=== PATIENT | female | born 1975 | race Caucasian/White ===

== ENCOUNTER 2018-04-15 20:55 | Emergency (ER) | payer OTHER ==
[2018-04-15 21:04] VITALS: RESP 16; TEMP 97.6
--- NOTE | 2018-04-15 21:35 | ED ---
Lower Extremity Injury HPI - General Source: patient Mode of arrival: ambulatory Limitations: no limitations <Francine Boss - Last Filed: 04/16/18 00:05> <Janet Person - Last Filed: 04/16/18 01:52> - General Chief Complaint: Extremity Injury, Lower Stated Complaint: Knee injury, [facility] Time Seen by Provider: 04/15/18 21:09 - History of Present Illness Initial Comments: 43-year-old female past medical history of chronic left knee pain presenting today for knee pain. Patient states she has a previous ACL injury. She states this did not initially current work. Patient states that she wears a brace daily and is followed by orthopedic surgeon in [place]. She states she her next appointment is scheduled for 04/21/18. 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 She states she felt her left knee become more unstable and wobble in the brace than usual with increased pain. Presented for evaluation. She denies any numbness tingling or loss sensation, coolness or pallor. Patient denies any dislocation. Remaining review of systems negative, patient denies any fall, fever, chills, shortness of breath, chest pain, back pain, abdominal pain, nausea or vomiting, numbness or tingling, dysuria or hematuria, constipation or diarrhea, headaches or visual changes, or any other complaints. (Francine Boss) - Related Data Allergies Allergy/AdvReac Type Severity Reaction Status Date / Time "white gloves at work" Allergy Rash/Hives Uncoded 04/15/18 21:05 Review of Systems ROS Other: All systems not noted in ROS Statement are negative. <Francine Boss - Last Filed: 04/16/18 00:05> ROS Other: All systems not noted in ROS Statement are negative. <Janet Person - Last Filed: 04/16/18 01:52> ROS Statement: Those systems with pertinent positive or pertinent negative responses have been documented in the HPI. Past Medical History Past Medical History: Cancer Additional Past Medical History / Comment(s): breast bilateral History of Any Multi-Drug Resistant Organisms: None Reported Past Surgical History: Breast Surgery Additional Past Surgical History / Comment(s): chronic open wound on abdomen Past Psychological History: No Psychological Hx Reported Smoking Status: Never smoker Past Alcohol Use History: None Reported Past Drug Use History: None Reported <Francine Boss - Last Filed: 04/16/18 00:05> General Exam Limitations: no limitations <Francine Boss - Last Filed: 04/16/18 00:05> <Janet Person - Last Filed: 04/16/18 01:52> - General Exam Comments Initial Comments: General: The patient is awake and alert, in no distress, and does not appear acutely ill. Eye: Pupils are equal, round and reactive to light, extra-ocular movements are intact. No nystagmus. There is normal conjunctiva bilaterally. No signs of icterus. Ears, nose, mouth and throat: There are moist mucous membranes and no oral lesions. Neck: The neck is supple, there is no tenderness or JVD. Cardiovascular: There is a regular rate and rhythm. No murmur, rub or gallop is appreciated. Respiratory: Lungs are clear to auscultation, respirations are non-labored, breath sounds are equal. No wheezes, stridor, rales, or rhonchi. Musculoskeletal: No gross deformity. Normal inspection of the knees bilaterally there is no soft tissue swelling or erythema. No palpable effusion. Extensor mechanism intact. No noted laxity. Patient has pain to palpation of the anterior knee. Normal ROM, with tenderness with full range of motion of the left knee.. Strength 5/5. Sensation intact. DP pulses equal bilaterally 2+. Neurological: A&O x 3. CN II-XII intact, There are no obvious motor or sensory deficits. Coordination appears grossly intact. Speech is normal. Skin: Skin is warm and dry and no rashes or lesions are noted. Psychiatric: Cooperative, appropriate mood & affect, normal judgment. (Francine Boss) Vital Signs 04/15/18 04/15/18 20:58 22:20 Temperature 97.6 F Pulse Rate 66 58 L Respiratory 16 16 Rate Blood Pressure 153/86 135/74 O2 Sat by Pulse 100 98 Oximetry Medical Decision Making <Francine Boss - Last Filed: 04/16/18 00:05> <Janet Person - Last Filed: 04/16/18 01:52> - Medical Decision Making X-ray negative for acute osseous injury. Patient has anterior knee pain. Quadriceps tendon appear intact's able to fully extend. No noted laxity. Anterior tenderness to palpation. Patient's previous ACL injury. Neurovascularly intact. No physical examination findings consistent with acute injury. Patient has brace at home. Patient provided prescription for crutches. Patient is to follow-up with orthopedic surgery as scheduled. Patient is not to return to work until cleared by orthopedic surgery. Patient agreed with plan discharge. I discussed Rice instructions as well as use of outpatient medication previously prescribed and [id number] ibuprofen and Tylenol. Patient is agreeable plan discharged by questions at this time. Return parameters were discussed at length, patient verbalized understanding. DIscussed case wtih attending provider Dr. Person. (Francine Boss) I was available for consultation in the emergency department. The history and physical exam were done by the midlevel provider. I was consulted for this patient's care. I reviewed the case with the midlevel provider and based on their presentation of the patient, I agree with the assessment, medical decision making and plan of care as documented. (Janet Person) Disposition Is patient prescribed a controlled substance at d/c from ED?: No Time of Disposition: 21:42 <Francine Boss - Last Filed: 04/16/18 00:05> <Janet Person - Last Filed: 04/16/18 01:52> Clinical Impression: Left knee pain Disposition: HOME SELF-CARE Instructions (If sedation given, give patient instructions): Knee Sprain (ED) Additional Instructions: Please use medication as discussed. Please follow-up with family doctor or orthopedic surgery in the next 2 days of symptoms have not improved. Please return to emergency room if the symptoms increase or worsen or for any other concerns. Referrals: Nonstaff,Physician [Primary Care Provider] - 1-2 days
--- NOTE | 2018-04-15 21:38 | XR ---
Left knee 3 views. History knee pain. Comparison none. FINDINGS: I see no fracture nor dislocation. Joint spaces are fairly normal. There is no sign of joint effusion . IMPRESSION: Negative left knee exam.
[2018-04-15 22:35] VITALS: BP 135/74; PULSE 58
== END 2018-04-15 22:20 | disposition home or self-care (01) ==
LOC: EC 20:55 → MERGE 20:55 → EC 22:20
DX: M25.562 Pain in left knee (principal); Z85.3 Personal history of malignant neoplasm of breast; Z91.09 Other allergy status, other than to drugs and biological substances
CPT/HCPCS: 99283

== ENCOUNTER 2021-07-24 07:59 | Day surgery (SDC) | payer MEDICAID, OTHER ==
[2021-07-19 16:20] VITALS: BMI 22.6
--- NOTE | 2021-07-23 09:17 | P.HPOR ---
History of Present Illness H&P Date: 07/23/21 Chief Complaint: Left carpal/cubital tunnel syndrome Subjective: This is a 46 year old female that presents today for initial evaluation regarding left hand numbness and tingling that has been present for over a year. She has tried night time splinting with little relief. She states the entire hand is numb and is worse at night time. She denies any injury or inciting event. She also has a history of a painful right index finger mass that has been present for 5 months overlying the PIP joint. She notes swelling and limited ROM due to the mass. Physical Examination: LUE: AIN/PIN/Radial/Ulnar/Median motor intact. Radial/Ulnar/Median SILT. 2+/4 Radial/Ulnar pulses palpated. 5/5 APB, 5/5 FDI. Negative Finkelsteins, negative CMC grind, Positive Durkan's compression. Paresthesias in ring and small finger with prolonged elbow flexion. RUE: AIN/PIN/Radial/Ulnar/Median motor intact. Radial/Ulnar/Median SILT. 2+/4 Radial/Ulnar pulses palpated. 5/5 APB, 5/5 FDI. Negative Finkelsteins, negative CMC grind, negative Durkan's compression. Right index finger round mass protruding from right index finger PIP joint. PIP ROM 0-80. Imaging: X-Rays of the right index finger demonstrate mild arthritic changes of the right index finger with small calcification at PIP joint. Impression: 1.)Left carpal tunnel syndrome 2.) Left cubital tunnel syndrome 3.) Right index finger soft tissue mass. Plan: Diagnosis and treatment options were discussed with the patient. I recommend endoscopic vs open carpal tunnel release and open cubital tunnel release since she has failed conservative treatment for her carpal/cubital tunnel. We also discussed a right index finger soft tissue mass excision which she would like to eventually do but she would like to take care of her left side first. Risks and benefit of surgery including bleeding, infection, damage to surrounding tissue, need for further surgery, possible need to convert to open procedure, residual numbness were discussed and the patient wished to go forward with surgery. I anticipate 2-3 weeks off of her [employer] work if needed. -Julio Stevenson DO Orthopedic Hand/Upper Extremity Surgeon Past Medical History Past Medical History: Cancer, Eye Disorder, Hypertension, Musculoskeletal Disorder, Osteoarthritis (OA) Additional Past Medical History / Comment(s): Hx breast cancer 2017; Do not use Lt arm for blood work or IV. Hx Lt lazy eye. Treated for HTN for 1 year after Breast cancer. Lt CTS up to elbow. History of Any Multi-Drug Resistant Organisms: None Reported Past Surgical History: Breast Surgery, Orthopedic Surgery, Tubal Ligation Additional Past Surgical History / Comment(s): Lt lazy eye surg x3. Bilat Mastectomy w/ lymph node removal; breast deep flap reconstruction w/ implants. Chronic open wound on abdomen surg. ACL, meniscus Lt knee x2. Past Anesthesia/Blood Transfusion Reactions: No Reported Reaction Additional Past Anesthesia/Blood Transfusion Reaction / Comment(s): Do not use Lt arm. Smoking Status: Current every day smoker - Past Family History Father Family Medical History: Cancer Additional Family Medical History / Comment(s): prostate cancer Medications and Allergies Home Medications Medication Instructions Recorded Confirmed Type Acetaminophen [Tylenol Extra 500 - 1,000 mg PO DIRECTED PRN 07/19/21 07/19/21 History Strength] Ibuprofen [Motrin Ib] 400 mg PO Q8H PRN 07/19/21 07/19/21 History Allergies Allergy/AdvReac Type Severity Reaction Status Date / Time latex Allergy Rash/Hives Verified 07/19/21 15:55 "white gloves at work" Allergy Rash/Hives Uncoded 04/16/18 08:01 Physical Examination Osteopathic Statement: *. No significant issues noted on an osteopathic structural exam other than those noted in the History and Physical/Consult.
[~2021-07-24 07:59] MED LIST: HYDROmorphone 0.5 MG/0.5 ML SYRINGE IVP PRN; LACTATED RINGERS 1,000 ML IV SCH; LIDOCAINE 1% (10MG/ML) FOR IV START INTRADERMA PRN; ONDANSETRON 4 MG/2 ML VIAL IVP ONE
[2021-07-24 08:33] VITALS: TEMP 97.8
[2021-07-24] MEDS ORDERED: DEXAMETHASONE SOD PHOSPHATE 4 MG/ML 1 ML VIAL IVP ONE (08:47)
[2021-07-24] MEDS ORDERED: PROPOFOL 10 MG/ML 20 ML VIAL IV ONE (09:25)
[2021-07-24] MEDS ORDERED: MIDAZOLAM 2 MG/2 ML VIAL ONE (09:25)
[2021-07-24] MEDS ORDERED: GLYCOPYRROLATE 0.2 MG/ML 2 ML VIAL ONE (09:25)
[2021-07-24] MEDS ORDERED: LIDOCAINE 2% INJ 20 MG/ML (2 ML VIAL) ONE (09:25)
[2021-07-24] MEDS ORDERED: BUPIVACAINE (PF) 0.5% 30 ML VIAL SQ ONE ×2 (09:25→10:14)
[2021-07-24] MEDS ORDERED: fentaNYL (PF) 50 MCG/ML 2 ML AMP ONE (09:25)
--- NOTE | 2021-07-24 10:39 | P.OP ---
Date of Procedure: 07/24/21 Preoperative Diagnosis: 1.) Left carpal tunnel syndrome 2.) Left cubital tunnel syndrome Postoperative Diagnosis: 1.) Left carpal tunnel syndrome 2.) Left cubital tunnel syndrome Procedure(s) Performed: 1.) Left endoscopic carpal tunnel release 2.) Left open cubital tunnel syndrome Anesthesia: ELICIA Surgeon: Julio Stevenson [employer] Delivery Manager #1: Paul Breaux Estimated Blood Loss (ml): 5 Pathology: none sent Condition: stable Disposition: PACU Description of Procedure: This is a 46 year old female who presented today for a left endoscopic carpal tunnel release and open cubital tunnel release after having failed conservative treatment. Risks and benefits of surgery were discussed with the patient including bleeding, damage to surrounding tissue, infection, need for further surgery as well as risks of anesthesia including pulmonary embolism and even and the patient wished to proceed with surgical intervention. The patient was seen in the pre-operative area by myself. Consent and H&P were completed and updated. The correct extremity was marked in the pre-operative area by myself and all other questions were answered. Operative Narrative: The patient was brought to the operating room by the department of anesthesia. They remained on the portable stretcher and a rolling hand table was brought to the side of the operative extremity. Pre-operative time out was performed indicating the correct patient, procedure and laterality. All in the room agreed. Pre-operative antibiotics were given prior to skin incision. The patient was then drifted off to sleep by the department of anesthesia. A nonsterile tourniquet was then applied to the operative extremity and the left upper extremity was then prepped and draped in normal sterile fashion. The operative extremity was the exsanguinated with an esmarch bandage and the tourniquet was inflated to 250mmHg. 15 blade scalpel was utilized to make a transverse incision on the palmar skin just ulnar to the palmaris longus tendon at the level of the distal wrist crease. Ragnell retractor was then placed radially and blunt dissection was performed to reveal the distal forearm fascia. This was lifted with fine Remi pick ups and Littler tenotomy scissors were then used to open the forearm fas lynn transversely and a double skin hook was then placed. Hamate finder was placed into the carpal tunnel and then sequential sized dilators were inserted followed by the synovial elevator to separate the flexor tenosynovium from the undersurface of the transverse carpal ligament and a washboard texture was felt. The MicroAire endoscopic carpal tunnel release system gun was the then inserted into the carpal tunnel hugging the deep portion of the transverse carpal ligament in line with the base of the ring finger. Transverse fibers of the ligament were directly visualized. Pressure was applied on the palm to reveal the distal extent of the transverse carpal ligament. The blade was then deployed and the distal half of the transverse carpal ligament was released. The scope was then brought distal again and remaining transverse fibers were incised with the blade. The proximal half of the transverse carpal ligament was then divided and again the scope was advanced distal and remaining transverse fibers were incised with the blade. The radial and ulnar leaflets were directly visualized and mobile consistent with complete release. Tenotomy scissors were then utilized to release the remaining distal forearm fascia under direct visualization taking care to preserve the palmar cutaneous branch of the median nerve. Attention was brought to the medial elbow. 15 blade scalpel was used to incise skin in between the medial epicondyle and olecranon in a curvlinear and longitudinal fashion. Blunt dissection was taken down through subcutaneous tissue with tenotomy scissors and branches of the MABCN were identified and protected. Dissection was carried proximally and the ulnar nerve was identified and released in it's entirety to the the intermuscular septum. Dissection was then carried distally and worthington's ligament was released at the medial epicondyle, the nerve appeared compressed at this location. Dissection was then carried out further distal and the fascia of the two heads of the FCU were incised and the ulnar nerve was decompressed with Brighton and tenotomy scissors and appeared to be tension free. The elbow was the flexed and extended and the ulnar nerve appeared to be stable in a tension free manner. 20cc's of 0.5% bupivacaine was injected into the subcutaneous tissues around incisions. Skin closure was performed with interrupted 4-0 Monocryl sutures followed by running 4-0 Monocryl sutures, followed by mastisol and steri strips. Large bulky dressing with 4x4s, cast padding and sary wrap. Tourniquet was then let down and the hand had immediate perfusion. The patient was then woken by the department of anesthesia and transferred to PACU in stable condition. Rosalina SULLIVAN was present for the case to assist in major portions of the surgery and protection of neurovascular structures. Julio Stevenson D.O. Orthopedic Hand/Upper Extremity Surgeon
[2021-07-24 11:01] VITALS: RESP 16
[2021-07-24 11:27] VITALS: BP 160/73; PULSE 71
== END 2021-07-24 11:58 | disposition home or self-care (01) ==
LOC: OR 07:59
PROVIDERS: ATTEND Orthopaedic Surgery Hand Surgery
DX: G56.02 Carpal tunnel syndrome, left upper limb (principal); G56.22 Lesion of ulnar nerve, left upper limb; F17.200 Nicotine dependence, unspecified, uncomplicated; I10 Essential (primary) hypertension; M19.90 Unspecified osteoarthritis, unspecified site; Z79.1 Long term (current) use of non-steroidal anti-inflammatories (NSAID); Z85.3 Personal history of malignant neoplasm of breast; Z91.040 Latex allergy status
CPT/HCPCS: 29848; 64718; 81025; J2250; J1100; J2405; J3010; J2704; J2001

== ENCOUNTER → 2021-08-15 | Outpatient (CLI) | payer MEDICAID ==
--- NOTE | 2021-08-15 13:49 | US ---
EXAMINATION TYPE: US axilla LT DATE OF EXAM: 08/15/2021 COMPARISON: NONE CLINICAL HISTORY: N63.32 UNSPECIFIED LUMP AXILLA. lump left axilla. history of breast cancer 2019. bi lateral mastectomy with TRAM scanned within area of lump, left axilla, lymph node = 2.1 x 0.9 x 1.4cm . The cortex is somewhat thi ckness is 0.47 cm. IMPRESSION: 1. Prominent lymph node with thickened cortex left axilla, consider additional workup.
== END | disposition home or self-care (01) ==
LOC: RADUSWWP 12:22
PROVIDERS: ATTEND Family Medicine
DX: N63.32 Unspecified lump in axillary tail of the left breast (principal)

== ENCOUNTER → 2021-09-19 | Outpatient (CLI) | payer MEDICAID ==
[2021-09-19 12:16] VITALS: BP 149/84; PULSE 120; RESP 17; TEMP 98.7
--- NOTE | 2021-09-19 12:44 | P.GSHP ---
History of Present Illness H&P Date: 09/19/21 Chief Complaint: Enlarged left axillary adenopathy Nataly is a 46-year-old white female seen in consultation for Dr. 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 At that time sentinel node biopsies were performed which were negative for tumor. The lesion itself was 9 mm there were negative margins. Did not have any hormone therapy, chemotherapy, radiation therapy. She had bilateral RORY flap reconstruction as well as implants placed. She has been followed in the [place] area until recently. Approximately 2 months ago she noticed swelling under her left arm. An ultrasound was done of this area on [id number] 322 which revealed a 2.1 x 1.4 cm enlarged lymph node. This had a prominent thickened cortex. The patient feels this may have increased in size. It is tender. She has not noted any infections in her left arm or hand. The DCIS was diagnosed at 41. She had genetic testing done and this was negative. She has not noted any lumps masses or nodules of concern on her chest wall. Caffeine: coffee 1 pop per day Nicotine: 1/2 PPD since chocolate: rare hormones: none BCP: never used Family History: father: prostate Hormonal history: Menarche: 11 [id number] 1 breast fed: no, age at first : 17 periods irregular Surgical history: Bilateral mastectomy with left sentinel node biopsy, bilateral RORY flap reconstruction as well as implants placed left knee done twice ACL repair carpel tunnel left umbilical hernia repair time 2, it has recurred tubaligation lazy eye Medical History: none Social History: Imaging: A half pack per day since 13 Alcohol: Negative Drugs: Negative - Constitutional Constitutional: Denies chills, Denies fever - EENT Eyes: denies blurred vision, denies pain Ears: deny: decreased hearing, tinnitus Ears, nose, mouth and throat: Denies headache, Denies sore throat - Breasts Breasts: bilateral: as per HPI - Cardiovascular Cardiovascular: Denies chest pain, Denies shortness of breath - Respiratory Comment: smoker Respiratory: Reports cough - Gastrointestinal Gastrointestinal: Denies abdominal pain, Denies diarrhea, Denies nausea, Denies vomiting - Genitourinary (Female) Genitourinary: Denies dysuria, Denies hematuria - Menstruation Menstruation: Reports as per HPI - Musculoskeletal Musculoskeletal: Denies myalgias - Integumentary Comment: multiple tattoos Integumentary: Denies pruritus, Denies rash - Neurological Comment: carpel tunnel surgery - Psychiatric Psychiatric: Denies anxiety, Denies depression - Endocrine Endocrine: Denies fatigue, Denies weight change - Hematologic/Lymphatic Comment: none - Allergic/Immunologic Allergic/Immunologic: Reports seasonal allergies Past Medical History Past Medical History: Cancer, Eye Disorder, Hypertension, Musculoskeletal Disorder, Osteoarthritis (OA) Additional Past Medical History / Comment(s): Hx breast cancer 2017; Do not use Lt arm for blood work or IV. Hx Lt lazy eye. Treated for HTN for 1 year after Breast cancer. Lt CTS up to elbow. History of Any Multi-Drug Resistant Organisms: None Reported Past Surgical History: Breast Surgery, Orthopedic Surgery, Tubal Ligation Additional Past Surgical History / Comment(s): Lt lazy eye surg x3. Bilat Mastectomy w/ lymph node removal; breast deep flap reconstruction w/ implants. Chronic open wound on abdomen surg. ACL, meniscus Lt knee x2. Past Anesthesia/Blood Transfusion Reactions: No Reported Reaction Additional Past Anesthesia/Blood Transfusion Reaction / Comment(s): Do not use Lt arm. Past Psychological History: No Psychological Hx Reported Smoking Status: Current every day smoker Past Alcohol Use History: None Reported, Rare Additional Past Alcohol Use History / Comment(s): Smoking since 1995, 1 ppd Past Drug Use History: None Reported - Past Family History Father Family Medical History: Cancer Additional Family Medical History / Comment(s): prostate cancer Medications and Allergies Home Medications Medication Instructions Recorded Confirmed Type Acetaminophen [Tylenol Extra 500 - 1,000 mg PO DIRECTED PRN 07/19/21 09/19/21 History Strength] Ibuprofen [Motrin Ib] 400 mg PO Q8H PRN 07/19/21 09/19/21 History Allergies Allergy/AdvReac Type Severity Reaction Status Date / Time latex Allergy Rash/Hives Verified 09/19/21 12:13 "white gloves at work" Allergy Rash/Hives Uncoded 09/19/21 12:13 Surgical - Exam Vital Signs Temp Pulse Resp BP Pulse Ox 98.7 F 120 H 17 149/84 98 09/19/21 12:14 09/19/21 12:14 09/19/21 12:14 09/19/21 12:14 09/19/21 12:14 BMI: 22.6 - General no distress - Eyes normal ocular movement - Neck trachea midline - Respiratory normal respiratory effort, clear to auscultation - Cardiovascular Rhythm: regular Heart Sounds: normal: S1, S2 - Abdomen Herniation at the midline of the abdomen related most likely to her reconstructive surgery Abdomen: soft, non tender, no guarding, no rigid, no rebound - Integumentary multiple tattoos - Neurologic no disoriented, no combative - Musculoskeletal normal gait, normal posture - Psychiatric oriented to time, oriented to person, oriented to place, speech is normal, memory intact Breast Exam: BRA: 36B inspection: bilateral reconstruction palpation: Right chest wall: Reconstructive breast no evidence of any cancer Right axilla: No adenopathy of concern Left chest wall: Reconstructed breasts no evidence of any cancer Left axilla: No adenopathy of concern is palpable although there is a tender area in the region where the ultrasound showed an enlarged lymph node Results ultrasound results reviewed Assessment and Plan Assessment: Impression: Left breast DCIS status post mastectomy with reconstruction in 2017, recent left adenopathy Ultrasound left axilla revealing a 2.1 x 1.4 cm lymph node with a slightly thickened cortex Plan: Ultrasound guided core biopsy enlarged lymph node left axilla secondary to the fact that that is the side that she had DCIS on in the past Patient a follow-up after ultrasound-guided core biopsy If we are unable to identify a lymph node to biopsy and ultrasound no see the patient again in 4 months for examination If she has any other questions or concerns or be happy to see her sooner Cc: Dr. Hassan
== END | disposition home or self-care (01) ==
LOC: WWCWWP 11:44
PROVIDERS: ATTEND Surgery
DX: Z53.9 Procedure and treatment not carried out, unspecified reason (principal)

== ENCOUNTER → 2021-10-01 | Day surgery (SDC) | payer MEDICAID ==
--- NOTE | 2021-10-08 10:47 | USB ---
Risk Values: Sharon 5 year model risk: 0.6%. NCI Lifetime model risk: 6.1%. Pathology Description: Location: axillary tail. Needle Type: Celero Cores: 2 Gauge: 12 The procedure of ultrasound guided core biopsy was explained to the patient. Benefits, alternatives, and risks were discussed. An informed consent was then obtained. The patient was placed in supine positioning for imaging and for the procedure. The overlying skin was prepped and draped in usual sterile fashion. Lidocaine was used as anesthetic into the skin and subcutaneous tissue up to area of concern in the enlarged left axillary lymph node. Under ultrasound guidance, a 12-gauge vacuum assisted biopsy gun device was used to obtain 2 core samples. Following this, a biopsy clip was left in lesion. The patient tolerated the procedure well without any immediate complication. The patient was kept in the radiology department for short stay after the procedure and then discharged home in stable condition. Impression: Successful, uncomplicated ultrasound guided core biopsy of area of concern in the enlarged left axillary lymph node. Full pathology results to follow. Pathology Results: Result: Benign, Lymph node. LEFT AXILLA, BIOPSY: Reactive lymphoid tissue with tattoo pigment and histiocytosis. Negative for metastatic carcinoma (see note). Overall Assessment: Benign Management: Diagnostic Breast Ultrasound of the left breast in 6 months. Electronically signed and approved by: Dwain Fierro M.D. Radiologis
== END ==
LOC: RADUSWWP 12:38
PROVIDERS: ATTEND Surgery
DX: N63.20 Unspecified lump in the left breast, unspecified quadrant (principal); Z91.040 Latex allergy status; Z87.891 Personal history of nicotine dependence; Z80.42 Family history of malignant neoplasm of prostate
CPT/HCPCS: 88305; 88342; 19083; A4648

== ENCOUNTER → 2021-10-23 | Outpatient (CLI) | payer MEDICAID ==
--- NOTE | 2021-10-23 17:24 | CT ---
EXAMINATION TYPE: CT abdomen pelvis w con DATE OF EXAM: 10/23/2021 COMPARISON: None INDICATION: abdominal distention, nausea. hx of hernia. DLP: 436.1 mGycm, Automated exposure control for dose reduction was used. CONTRAST: 70cc mL of Isovue 300. Study performed with Oral Contrast TECHNIQUE: Axial images were obtained from above the diaphragm to the pubic rami in the axial plane a t 5 mm thick sections. Reconstructed images are reviewed on the computer in the coronal plane. FINDINGS: Limited CT sections are obtained the lung bases. The lung bases are clear. Bilateral breast prosthe ses are present. CT ABDOMEN: Liver: Normal Spleen: Normal Pancreas: Normal Adrenal glands: The adrenal glands are normal. Gallbladder: Normal Kidneys: No masses are evident. No hydronephrosis is present. No cysts are present. Delayed images were obtained through the kidneys, which remain unremarkable. Aorta: Vascular calcification is within the aorta. Inferior vena cava: Normal. CT PELVIS: Loops of bowel within the abdomen and pelvis are normal. There are loops of bowel which are incom pletely distended or lack oral contrast limiting their evaluation. Oral contrast extends to the dista l small bowel loops. No dilated small bowel loops are evident. Fecal debris and air is within the col on. Colon is nondilated. No suspicious changes for obstruction are evident Appendix: Not identified. No dilated tubular structure or inflammatory change evident. Urinary bladder: Normal. Genitourinary structures: There is a 2.4 cm cyst on the right ovary. Uterus is unremarkable. Left adn exa appears normal. Osseous structures: No suspicious lytic or sclerotic lesions. IMPRESSIONS: 1. No suspicious changes to suggest bowel obstruction. 2. Right ovarian cyst. This could be followed with ultrasound.
== END | disposition home or self-care (01) ==
LOC: RADCTMAIN 11:49
PROVIDERS: ATTEND Surgery Plastic and Reconstructive Surgery
DX: K56.609 Unspecified intestinal obstruction, unspecified as to partial versus complete obstruction (principal); R07.9 Chest pain, unspecified
CPT/HCPCS: 74177; 93005; Q9967

== ENCOUNTER 2021-11-09 10:53 | Emergency (ER) | payer MEDICAID ==
[2021-11-09 11:03] VITALS: BP 152/85; PULSE 68; RESP 18; TEMP 98.1
--- NOTE | 2021-11-09 11:26 | XR ---
EXAMINATION TYPE: XR chest 2V DATE OF EXAM: 11/09/2021 COMPARISON: None HISTORY: 46-year-old female with cough, COVID positive 5 days ago TECHNIQUE: PA and lateral views FINDINGS: The cardiomediastinal silhouette, aorta, and pulmonary vasculature are within normal limits. Lungs an d pleural spaces are clear. Surgical clips project over both breasts. There may be some fine wires also retained along the breast soft tissues. Clinical correlate. IMPRESSION: No acute cardiopulmonary process.. Query some retained surgical clips and thin wire projecting at the breast soft tissues.
--- NOTE | 2021-11-09 12:07 | ED ---
URI HPI - General Chief Complaint: Upper Respiratory Infection Stated Complaint: Covid+, cough/SOB Time Seen by Provider: 11/09/21 11:36 Source: patient Mode of arrival: ambulatory Limitations: no limitations - History of Present Illness Initial Comments: Patient is a 46-year-old female presenting to the emergency room with complaints of cough and mild shortness of breath not improving. She states that symptoms began Thursday, 4 days ago and at that time she tested positive for Covid. She contacted her primary care provider who encouraged supportive care with [id number] cough suppressants vitamins/minerals and Tylenol or ibuprofen for fevers and body aches. She denies any chest pain recent high-grade fevers or chills. She denies any abdominal pain, nausea, vomiting or diarrhea. She has a past medical history significant for hypertension, breast cancer in remission and GERD; she does not take any medications on a regular basis. - Related Data Home Medications Medication Instructions Recorded Confirmed Acetaminophen [Tylenol Extra 500 - 1,000 mg PO DIRECTED PRN 07/19/21 10/11/21 Strength] Ibuprofen [Motrin Ib] 400 mg PO Q8H PRN 07/19/21 10/11/21 Previous Rx's Medication Instructions Recorded Nirmatrelvir/Ritonavir [Paxlovid 1 each PO BID 5 Days #10 each 11/09/21 300-100 mg Pack (Eua)] Allergies Allergy/AdvReac Type Severity Reaction Status Date / Time latex Allergy Rash/Hives Verified 11/09/21 11:02 "white gloves at work" Allergy Rash/Hives Uncoded 11/09/21 11:02 Review of Systems ROS Statement: Those systems with pertinent positive or pertinent negative responses have been documented in the HPI. ROS Other: All systems not noted in ROS Statement are negative. Past Medical History Past Medical History: Cancer, Eye Disorder, Hypertension, Musculoskeletal Disorder, Osteoarthritis (OA) Additional Past Medical History / Comment(s): Hx breast cancer 2017; Do not use Lt arm for blood work or IV. Hx Lt lazy eye. Treated for HTN for 1 year after Breast cancer. Lt CTS up to elbow. History of Any Multi-Drug Resistant Organisms: None Reported Past Surgical History: Breast Surgery, Orthopedic Surgery, Tubal Ligation Additional Past Surgical History / Comment(s): Lt lazy eye surg x3. Bilat Mastectomy w/ lymph node removal; breast deep flap reconstruction w/ implants. Chronic open wound on abdomen surg. ACL, meniscus Lt knee x2. Hernia repair 2018 Past Anesthesia/Blood Transfusion Reactions: No Reported Reaction Additional Past Anesthesia/Blood Transfusion Reaction / Comment(s): Do not use Lt arm. Past Psychological History: No Psychological Hx Reported Smoking Status: Current every day smoker Past Alcohol Use History: Occasional Past Drug Use History: None Reported - Past Family History Father Family Medical History: Cancer Additional Family Medical History / Comment(s): prostate cancer General Exam Limitations: no limitations General appearance: alert, in no apparent distress Head exam: Present: atraumatic, normocephalic, normal inspection Eye exam: Present: normal appearance, PERRL, EOMI. Absent: scleral icterus, con junctival injection, periorbital swelling ENT exam: Present: normal exam, mucous membranes moist Neck exam: Present: normal inspection. Absent: lymphadenopathy Respiratory exam: Present: normal lung sounds bilaterally. Absent: respiratory distress, wheezes, rales, rhonchi, stridor Cardiovascular Exam: Present: regular rate, normal rhythm, normal heart sounds. Absent: systolic murmur, diastolic murmur, rubs, gallop, clicks GI/Abdominal exam: Present: soft, normal bowel sounds. Absent: distended, tenderness, guarding, rebound, rigid Extremities exam: Present: normal inspection. Absent: pedal edema, joint swelling Back exam: Present: normal inspection Neurological exam: Present: alert, oriented X3, CN II-XII intact Psychiatric exam: Present: normal affect, normal mood Skin exam: Present: warm, dry, intact, normal color. Absent: rash Course Vital Signs 11/09/21 10:59 Temperature 98.1 F Pulse Rate 68 Respiratory 18 Rate Blood Pressure 152/85 O2 Sat by Pulse 99 Oximetry Medical Decision Making - Medical Decision Making 38-year-old female with known positive Covid test on 11/06/2021 not currently on Paxlovid or formulary alternatives. Temperature and heart rate within normal limits. Oxygen level stable. No need for supplemental oxygen. No need for laboratory studies. Will check chest x-ray. Chest x-ray negative for acute cardiopulmonary process. Findings reviewed with patient. Advised continue supportive care, continued quarantining and given onset of symptoms within the last 5 days will start on Paxlovid she has no contraindications for the medication. She is agreeable to this plan and dischar vanita. Case discussed with Dr. Cannon. - Radiology Data Radiology results: report reviewed, image reviewed Chest x-ray two-view no acute cardiopulmonary process. Some retained surgical clips and then wires projecting at the breast soft tissue area clinically correlating with previous breast surgery. Disposition Clinical Impression: COVID-19 Disposition: HOME SELF-CARE Condition: Stable Instructions (If sedation given, give patient instructions): Upper Respiratory Infection (ED), COVID-19 (Coronavirus Disease 2019) (ED) Additional Instructions: Please quarantine for 5 days after testing positive and restart quarantine if symptoms worsen. Please utilize Tylenol as needed for fevers and pain. Taking vitamin C, Zinc, vitamin D 50 mcg, and melatonin may help symptom recovery. Complete course of Paxlovid as prescribed. Follow-up with your primary care provider after quarantine. Please return to the Emergency Department if symptoms worsen or any other concerns. Prescriptions: Nirmatrelvir/Ritonavir [Paxlovid 300-100 mg Pack (Eua)] 1 each PO BID 5 Days #10 each Is patient prescribed a controlled substance at d/c from ED?: No Referrals: Lamberto Hassan DO [Primary Care Provider] - 1-2 days Time of Disposition: 12:05
== END 2021-11-09 12:11 | disposition home or self-care (01) ==
LOC: EC 10:53
DX: U07.1 COVID-19 (principal); I10 Essential (primary) hypertension; M19.90 Unspecified osteoarthritis, unspecified site; F17.200 Nicotine dependence, unspecified, uncomplicated; Z91.040 Latex allergy status
CPT/HCPCS: 71046; 99284

== ENCOUNTER → 2021-12-09 | Outpatient (CLI) | payer MEDICAID ==
--- NOTE | 2021-12-09 10:02 | CA ---
Exercise Stress Test Report Name: Halley Valdivia Exam Date: 12/09/2021 09:11 Exam Location: [facility] Stress Ht (in): 66 Wt (lb): 145 BSA: 1.74 Ordering Phys: Lamberto Hassan DO Referring Phys: SCOT, Technologist: Curry Guzman Age: 46 Gender: F : 1975 Procedure CPT: Indications: I45.19 RIGHT BUNDLE BRACH BLOCK ICD-10 Codes: Patient History: Abnormal EKG Medications: Meds past 24 hrs: Pretest Chest Pain: STRESS TEST [place] Protocol Exercise Duration (min:sec): 08:[address] Depressions (mm): Angina Score: Clark Score: Resting HR (bpm): 56 Peak HR (bpm): 146 Resting BP (mmHg): 135 / 90 Peak BP (mmHg): 192 / 90 MPHR: 172 Target HR: 146 % MPHR: 85 METS: 10.3 Total Dose: Peak Dose: Atropine: Double Product: 15040 BP Response: Stress Termination: Reached target heart rate Stress Symptoms: No chest pain or symptoms Stress Summary: ECG ANALYSIS Resting ECG: Stress ECG: CONCLUSIONS This is a regular stress test. Baseline EKG revealed a normal sinus rhythm with minor right ventricular conduction delay. Patient walked for 8 minutes 20 seconds and achieved a maximal heart rate of 146 bpm which is 85% of predicted maximal. No anginal symptoms were reported patient had fatigue and shortness of breath. EKG did not reveal any ST segment changes to indicate ischemia. There was no angina or arrhythmia. By EKG criteria this is a normal stress test with fair exercise capacity. No evidence of ischemia. Dr. Therese Doan MD (Electronically Signed) Final Date: 09 December 2021 10:01
== END | disposition home or self-care (01) ==
LOC: RADNMMAIN 08:33
PROVIDERS: ATTEND Family Medicine
DX: I45.19 Other right bundle-branch block (principal)
CPT/HCPCS: 93017

== ENCOUNTER → 2021-12-12 | Outpatient (CLI) | payer MEDICAID ==
--- NOTE | 2021-12-13 09:47 | CA ---
Transthoracic Echo Report Name: Halley Valdivia Age: 46 Gender: F : 1975 Exam Date: 12/12/2021 14:19 Exam Location: [facility] Echo Ht (in): 65 Wt (lb): 145 Ordering Physician: Lamberto Hassan DO Attending/Referring Phys: Core Analyst Elizabeth Lay RDCS Procedure CPT: Indications: I45.19 OTHER RIGHT BUNDLE-BRANCH BLOCK Technical Quality: Good Contrast 1: Total Dose (mL): Contrast 2: Total Dose (mL): MEASUREMENTS (Male / Female) Normal Values 2D ECHO LV Diastolic Diameter PLAX 4.2 cm 4.2 - 5.9 / 3.9 - 5.3 cm LV Systolic Diameter PLAX 2.4 cm IVS Diastolic Thickness 1.0 cm 0.6 - 1.0 / 0.6 - 0.9 cm LVPW Diastolic Thickness 1.0 cm 0.6 - 1.0 / 0.6 - 0.9 cm LV Relative Wall Thickness 0.5 RV Internal Dim ED PLAX 2.5 cm M-MODE Aortic Root Diameter MM 3.1 cm LA Systolic Diameter MM 3.2 cm LA Ao Ratio MM 1.0 MV E Point Septal Separation 0.2 cm AV Cusp Separation MM 2.0 cm DOPPLER MV Area PHT 3.6 cm??? Mitral E Point Velocity 68.0 cm/s Mitral A Point Velocity 61.5 cm/s Mitral E to A Ratio 1.1 MV Deceleration Time 210.5 ms MV E' Velocity 10.3 cm/s Mitral E to MV E' Ratio 6.6 FINDINGS Left Ventricle left ventricular ejection fraction is estimated at 50-55%. Borderline increased left ventricular wall thickness. Right Ventricle Normal right ventricular size and function. Right Atrium Normal right atrial size. Left Atrium Normal left atrial size. Mitral Valve Structurally normal mitral valve. Aortic Valve Trileaflet aortic valve. Tricuspid Valve Structurally normal tricuspid valve. Mild tricuspid regurgitation. Pulmonic Valve Structurally normal pulmonic valve. Pericardium Normal pericardium. Aorta Normal size aortic root and proximal ascending aorta. CONCLUSIONS Left ventricular ejection fraction 50-55% No mitral regurgitation Mild tricuspid regurgitation No pericardial effusion Previewed by: Dr. Bharath Carvajal DO (Electronically Signed) Final Date: 13 December 2021 09:46
== END | disposition home or self-care (01) ==
LOC: RADECHMAIN 14:17
PROVIDERS: ATTEND Family Medicine
DX: I45.19 Other right bundle-branch block (principal)
CPT/HCPCS: 93306

== ENCOUNTER → 2022-01-08 | Outpatient (CLI) | payer MEDICAID ==
--- NOTE | 2022-01-08 16:54 | US ---
EXAMINATION TYPE: US pelvic complete DATE OF EXAM: 01/08/2022 COMPARISON: CT 2021 CLINICAL HISTORY: N83.201 UNSPECIFIED OVARIAN CYST, RIGHT SIDE. Right ovary seen on recent CT TECHNIQUE: . Transabdominal sonographic images of the pelvis were acquired. Date of LMP: 3 weeks ago EXAM MEASUREMENTS: Uterus: 8.4 x 3.8 x 5.0 cm Endometrial Stripe: 1.0 cm Right Ovary: 4.3 x 1.9 x 3.3 cm Left Ovary: 3.4 x 2.2 x 2.5 cm 1. Uterus: anteverted 2. Endometrium: appears wnl 3. Right Ovary: 1.5 x 1.4 x 1.4cm cystic area 4. Left Ovary: wnl 5. Bilateral Adnexa: wnl 6. Posterior cul-de-sac: wnl IMPRESSION: 1. No evidence for acute process. 2. Right ovarian dominant follicle measuring 1.5 cm.
== END | disposition home or self-care (01) ==
LOC: RADUSWWP 15:34
PROVIDERS: ATTEND Family Medicine
DX: N83.201 Unspecified ovarian cyst, right side (principal)
CPT/HCPCS: 76856

== ENCOUNTER 2022-02-28 07:11 | Day surgery (SDC) | payer MEDICAID ==
[2022-02-25 15:26] VITALS: BMI 23.6
--- NOTE | 2022-02-28 01:38 | P.GSHP ---
History of Present Illness H&P Date: 02/28/22 CHIEF COMPLAINT: Ventral hernia. HISTORY OF PRESENT ILLNESS: The patient is a 46-year-old female who presents with swelling along the abdomen for over 6 months with pain and tenderness. Findings were consistent with ventral hernia. Now she presents for further evaluation and management. PAST MEDICAL HISTORY: Please see list and reviewed. PAST SURGICAL HISTORY: Please see list and reviewed. MEDICATIONS: Please see list and reviewed. ALLERGIES: Please see list and reviewed. SOCIAL HISTORY: Please see list and reviewed. FAMILY HISTORY: No reports of Crohn disease or ulcerative colitis. REVIEW OF ORGAN SYSTEMS: CONSTITUTIONAL: No reports of fevers or chills. GI: Denies any blood in stools or constipation. HEENT: Denies any trouble with vision, hearing or nosebleeds. No difficulty swallowing. LYMPHATIC: The patient denies any lumps and bumps around the neck. ENDOCRINE: Denies any thyroid disorders. Denies any blood sugar glucose intolerance. RESPIRATORY: Denies pneumonia. Denies any troubles with breathing or dyspnea on exertion. CARDIOVASCULAR: Denies any chest pain, palpitations, or recent heart attacks. GENITOURINARY: Denies any blood in urine or increased urinary frequency. MUSCULOSKELETAL: Denies any back pain, stiffness, joint arthritis. NEUROLOGIC: Denies any numbness or tingling along the distal extremities. No seizure disorders or headaches. PSYCHIATRIC: Has depression. No suidical ideation. HEMATOLOGIC: Denies any abnormal bleeding or bruising. BREASTS: Denies any breast lumps, pain or nipple discharge. PHYSICAL EXAM: VITAL SIGNS: Stable GENERAL: Well-developed pleasant female in no acute distress. HEENT: No scleral icterus. Extraocular movements grossly intact. Moist buccal mucosa. NECK: Supple without lymphadenopathy. CHEST: Unlabored respirations. Equal bilateral excursions. CARDIOVASCULAR: Regular rate and rhythm. Distal 2+ pulses. ABDOMEN: Soft, nondistended. Hernia of the abdomen MUSCULOSKELETAL: No clubbing, cyanosis, or edema. SKIN: Well perfused. PSYCH: Alert and oriented. No focal or lateralizing signs. ASSESSMENT: 1. Ventral hernia. PLAN: 1. Recommend proceeding with robotic ventral hernia repair with mesh. 2. Benefits and risks of surgical intervention was discussed including possibility of open technique. 3. DVT prophylaxis. 4. Antibiotic prophylaxis. 5. She is elevated risk with tobacco abuse disorder 6. Nutritional assessment including high protein shakes were reviewed 7. Non-narcotic pain managment reviewed. 8. Tobacco cessation and counseling performed. 9. Blood sugar glucose control described Past Medical History Past Medical History: Cancer, Eye Disorder, Musculoskeletal Disorder, Osteoarthritis (OA) Additional Past Medical History / Comment(s): Hx breast cancer 2017; Do not use Lt arm for blood work or IV. Hx Lt lazy eye. Treated for HTN for 1 year after Breast cancer. History of Any Multi-Drug Resistant Organisms: None Reported Past Surgical History: Breast Surgery, Orthopedic Surgery, Tubal Ligation Additional Past Surgical History / Comment(s): Lt lazy eye surg x3. Bilat Mastectomy w/ lymph node removal; breast deep flap reconstruction w/ implants. Chronic open wound on abdomen surg. ACL, meniscus Lt knee x2. Hernia repair 2018, left carp tunnel release Past Anesthesia/Blood Transfusion Reactions: No Reported Reaction Additional Past Anesthesia/Blood Transfusion Reaction / Comment(s): Do not use Lt arm. Past Psychological History: No Psychological Hx Reported Smoking Status: Current every day smoker Past Alcohol Use History: Occasional Past Drug Use History: None Reported - Past Family History Father Family Medical History: Cancer Additional Family Medical History / Comment(s): prostate cancer Medications and Allergies Home Medications Medication Instructions Recorded Confirmed Type No Known Home Medications 02/25/22 02/25/22 History Allergies Allergy/AdvReac Type Severity Reaction Status Date / Time latex Allergy Rash/Hives Verified 02/25/22 15:13 "white gloves at work" Allergy Rash/Hives Uncoded 02/25/22 15:13
[~2022-02-28 07:11] MED LIST changes: +ACETAMINOPHEN TAB 500 MG TAB PO ONE; +GABAPENTIN 300 MG CAP PO ONE; +HEPARIN SODIUM,PORCINE/PF 5,000 UNIT/0.5 ML SYRINGE SQ PRN; -HYDROmorphone 0.5 MG/0.5 ML SYRINGE IVP PRN; -LACTATED RINGERS 1,000 ML IV SCH; -LIDOCAINE 1% (10MG/ML) FOR IV START INTRADERMA PRN; +MELOXICAM 7.5 MG TAB PO SCH; -ONDANSETRON 4 MG/2 ML VIAL IVP ONE; +SCOPOLAMINE 1 MG/72 HR PATCH TRANSDERM ONE
[2022-02-28] MEDS ORDERED: LACTATED RINGERS 1,000 ML IV SCH (07:20)
[2022-02-28] MEDS ORDERED: DEXAMETHASONE SOD PHOSPHATE 4 MG/ML 1 ML VIAL IV ONE (07:20)
[2022-02-28] MEDS ORDERED: MIDAZOLAM 2 MG/2 ML VIAL IV PRN (07:20)
[2022-02-28] MEDS ORDERED: LIDOCAINE 1% (10MG/ML) FOR IV START INTRADERMA PRN (07:20)
[2022-02-28] MEDS ORDERED: ONDANSETRON 4 MG/2 ML VIAL IVP ONE (07:20)
[2022-02-28 07:42] VITALS: TEMP 97.2
[2022-02-28] MEDS ORDERED: MIDAZOLAM 2 MG/2 ML VIAL IV ONE (08:09)
[2022-02-28 08:30] LABS: Basophils # (A) 0.1 k/uL (0-0.2); Basophils % (A) 1 %; Eosinophils # (A) 0.2 k/uL (0-0.7); Eosinophils % (A) 2 %; HCT 46.7 % (34.0-46.0); HGB 15.6 gm/dL (11.4-16.0); Lymphocytes # (A) 1.8 k/uL (1.0-4.8); Lymphocytes % (A) 19 %; MCH 33.7 pg (25.0-35.0); MCHC 33.3 g/dL (31.0-37.0); MCV 101.2 fL (80.0-100.0); Mean Platelet Volume 9.2; Monocytes # (A) 0.6 k/uL (0-1.0); Monocytes % (A) 6 %; Neutrophils # (A) 6.6 k/uL (1.3-7.7); Neutrophils % (A) 70 %; Platelet Count 220 k/uL (150-450); RBC 4.62 m/uL (3.80-5.40); RDW 12.9 % (11.5-15.5); WBC 9.3 k/uL (3.8-10.6)
[2022-02-28 08:45] LABS: ALT 23 U/L (4-34); AST 24 U/L (14-36); African American GFR (CKD) >90 (>60 ml/min/1.73 sqM); Albumin 4.2 g/dL (3.5-5.0); Alkaline Phosphatase 59 U/L (38-126); Anion Gap 3 mmol/L; Blood Urea Nitrogen 19 mg/dL (7-17); Carbon Dioxide 29 mmol/L (22-30); Chloride 108 mmol/L (98-107); Glucose 90 mg/dL (74-99); Non-African American GFR(CKD) >90 (>60 ml/min/1.73 sqM); Potassium 4.9 mmol/L (3.5-5.1); Sodium 140 mmol/L (137-145); Total Bilirubin 0.4 mg/dL (0.2-1.3)
[2022-02-28] MEDS ORDERED: BUPIVACAIN-EPI 0.25%-1:200,000 30 ML VIAL SQ ONE ×2 (09:34→09:45)
[2022-02-28] MEDS ORDERED: DEXAMETHASONE SOD PHOSPHATE 4 MG/ML 1 ML VIAL ONE (09:45)
[2022-02-28] MEDS ORDERED: ROCURONIUM 10 MG/ML (5 ML VIAL) IV ONE (09:45)
[2022-02-28] MEDS ORDERED: SODIUM CHLORIDE 0.9% (PF) 10 ML VIAL ONE (09:45)
[2022-02-28] MEDS ORDERED: GLYCOPYRROLATE 0.2 MG/ML 2 ML VIAL ONE (09:45)
[2022-02-28] MEDS ORDERED: fentaNYL (PF) 50 MCG/ML 2 ML AMP ONE (09:45)
[2022-02-28] MEDS ORDERED: LIDOCAINE 2% INJ 20 MG/ML (2 ML VIAL) ONE (09:45)
[2022-02-28] MEDS ORDERED: PROPOFOL 10 MG/ML 20 ML VIAL IV ONE (09:45)
[2022-02-28] MEDS ORDERED: NEOSTIGMINE 1 MG/ML 10 ML VIAL ONE (09:45)
[2022-02-28] MEDS ORDERED: ROPIVACAINE 5 MG/ML 30 ML VIAL ONE (09:45)
[2022-02-28] MEDS ORDERED: SUCCINYLCHOLINE CHLORIDE 200 MG/10 ML VIAL IV ONE (09:45)
[2022-02-28] MEDS ORDERED: KETOROLAC 15 MG/ML 1 ML VIAL ONE (09:45)
[2022-02-28] MEDS: HYDROmorphone 0.5 MG/0.5 ML SYRINGE IVP PRN ×2 (12:25→12:46)
[2022-02-28] MEDS ORDERED: hydrALAZINE HCL 20 MG/ML 1 ML VIAL IVP ONE (12:43)
[2022-02-28] MEDS ORDERED: LACTATED RINGERS 1,000 ML IV ONE (12:45)
--- NOTE | 2022-02-28 13:48 | P.OP ---
Date of Procedure: 02/28/22 Description of Procedure: SURGEON: YOON ROLDAN MD PREOPERATIVE DIAGNOSES: 1. Recurrent incisional hernia 2. Tobacco abuse disorder POSTOPERATIVE DIAGNOSES: 1. Recurrent incarcerated incisional hernia, 4 cm width by 17 cm length 2. Foreign body abdominal wall, right lower quadrant, epigastrium 3. Tobacco abuse disorder 4. Peritoneal lesion, pelvis OPERATION: 1. Robotic-assisted da Krishna Xi laparoscopic lysis of adhesions 2. Robotic-assisted da Krishna Xi laparoscopic repair of recurrent incarcerated incisional hernia 4 x 17 cm with mesh, ventralight ST mesh 11.4 cm 3. Removal of foreign body from intra-abdominal wall Anesthesia: GETA, regional, local Estimated Blood Loss (ml): 5 Pathology: 1. Incarcerated incisional hernia 2. Foreign body abdominal wall COMPLICATIONS: None. Operative Findings: 1. Incarcerated incisional hernia epigastrium, containing falciform ligament 2. Separate lower midline incisional hernia with omentum incarceration 3. Combined defect 4 cm width by 17 cm length incarcerated incisional hernia 4. Sub-lay mesh repair 5. Removal of foreign body, prior mesh repair right lower quadrant and epigastrium performed INDICATIONS: The patient is a 46-year-old male who presents with a personal history of recurrent multiple abdominal wall hernias. Surgical intervention with laparoscopic versus robotic and open techniques were reviewed. Placement of mesh was also reviewed. Benefits and risks were thoroughly described. Informed consent was obtained. DESCRIPTION OF PROCEDURE: The patient was brought into the operating room and laid in supine position. After general induction, the abdomen had been prepped and draped in standard sterile fashion. Ioban draping was also placed. Prior to incision, a timeout protocol was confirmed with surgical team regarding the patient's name including procedures to be performed. The robot was primed prior to the procedure. A field block using local anesthetic was placed along hernia site including the proposed port sites. Initial incision was made with an #11 blade along the left upper quadrant. A 0 degree 5 mm laparoscopic trocar entry was performed and insufflated. Three 8 mm ports were placed along the left lateral abdominal wall under direct localization after exchanging the 5-mm for an 8 mm port. Placements of the ports were 15 cm from the target anatomy and 10 cm apart. An accessory 12 mm port was placed at the right upper quadrant for exchange of mesh including sutures. The da Krishna Xi robot was previously primed, prepped and draped then docked from the right side of the patient onto the left side of the patient. I then sat at the robot Da Krishna Xi console where working arms of the robot including Bovie cautery connected to robotic scissors, needle company driver, and graspers placed by the daycare assistant. Incarcerated omental contents were found along the upper midline defect including umbilicus. The defects were reduced with preperitoneal fat including the falciform ligament at the upper midline defect. Two distinct fascial defects were found: Upper midline defect 4 x 3 cm and umbilical hernia defect 2 x 3 cm. The incarcerated contents were reduced as the peritoneal fat was cleaned from the abdominal wall. Next, hemostasis was checked with cautery. The hernia defects were oversewn using #1 nonabsorbable V-lock suture for each defect separately with fascial imbrication x 2. Next, ventralight ST mesh 11.4 cm was placed with the rough side towards the abdominal wall as to cover the epigastric including umbilical defect. 2-0 VLOC 9 inch sutures were used to fixate the mesh. A final endoscopic imaging was obtained. All instruments and pneumoperitoneum were evacuated from the abdominal cavity. The da Krishna Xi robot was undocked from the patient. I re-scrubbed into the case for closure of incisions. The fascia of the 12-mm port was probed and less than 8-mm in size. The incisions were reapproximated using 4-0 Monocryl in an interrupted subcuticular fashion. Liquid glue was applied to the skin after cleansing the skin with no rmal saline and dilute hydrogen peroxide. An abdominal binder was placed. An umbilical dressing was placed prior. At the end of the procedure, needle, sponge, and instrument count had been verified correct by landfill gas technician. The patient was taken to the postanesthesia care unit in stable condition. Plan - Discharge Summary Discharge Rx Participant: No New Discharge Prescriptions: New Acetaminophen Tab [Tylenol Tab] 1,000 mg PO Q6HR PRN #30 tablet PRN Reason: Pain Cyclobenzaprine [Flexeril] 10 mg PO TID #30 tab Ibuprofen [Motrin] 600 mg PO Q8HR PRN #30 tab PRN Reason: Pain Simethicone [Gas-X] 125 mg PO AC-TID PRN #20 capsule PRN Reason: Pain Discharge Medication List Acetaminophen Tab [Tylenol Tab] 1,000 mg PO Q6HR PRN #30 tablet 02/28/22 [Rx] Cyclobenzaprine [Flexeril] 10 mg PO TID #30 tab 02/28/22 [Rx] Ibuprofen [Motrin] 600 mg PO Q8HR PRN #30 tab 02/28/22 [Rx] Simethicone [Gas-X] 125 mg PO AC-TID PRN #20 capsule 02/28/22 [Rx] Follow up Appointment(s)/Referral(s): Yoon Roldan MD [STAFF PHYSICIAN] - 03/11/22 (TELE[facility]) Patient Instructions/Handouts: *[facility] - Anesthesia Discharge Instructions, *[facility] - Managing Your Pain After Surgery Without Opioids, Ventral Hernia Repair (DC), Abdominal Binder (DC), How to Stop Smoking (DC) Activity/Diet/Wound Care/Special Instructions: No lifting for 4 pounds in 4 weeks, Mar 31 Using antibacterial soap. May shower. No bathtub soaks for 2 weeks, Apr 14 Wear abdominal binder daily for comfort except for showering. Use ice along incisions for today to prevent swelling. Discharge Disposition: HOME SELF-CARE
[2022-02-28 13:58] VITALS: RESP 15
[2022-02-28 14:27] VITALS: BP 152/78; PULSE 68
--- NOTE | 2022-03-02 14:17 | P.ANPRN ---
Procedure Note - Anesthesia - Nerve Block Performed Bilateral Erector Spinae Single Time Out Performed: Yes Date of Procedure: 02/28/22 Procedure Start Time: : Procedure Stop Time: :15 Location of Patient: PreOp Indication: Acute Post-Operative Pain, Requested by Surgeon Sedation Type: Sedate with meaningful contact maintained Preparation: Sterile Prep Position: Prone Needle Types: Pajunk Needle Gauge: 21 Ultrasound used to visualize needle placement: Yes Ultrasound used to observe medication spread: Yes Blood Aspirated: No Pain Paresthesia on Injection Noted: No Resistance on Injection: Normal Image Stored and Saved: Yes Events: Uneventful and Well Tolerated (Ropivacaine 0.5% 15 mL plus normal saline 10 mL plus dexamethasone 4 mg given bilaterally at L1)
== END 2022-02-28 14:38 | disposition home or self-care (01) ==
LOC: OR 07:11
PROVIDERS: ATTEND Surgery Plastic and Reconstructive Surgery
DX: K43.2 Incisional hernia without obstruction or gangrene (principal); G89.18 Other acute postprocedural pain; M19.90 Unspecified osteoarthritis, unspecified site; I10 Essential (primary) hypertension; Z85.3 Personal history of malignant neoplasm of breast; Z72.0 Tobacco use; Z86.59 Personal history of other mental and behavioral disorders; Z80.42 Family history of malignant neoplasm of prostate; Z91.040 Latex allergy status
CPT/HCPCS: 64999; 88304; 80053; 85025; 88302; 49616; C1781; J2250; J0330; J0360; J1100; J2710; J0690; J2405; J3010; J2795; J1885; J2704; J1170; J1644; J2001

== ENCOUNTER → 2022-05-21 | Outpatient (CLI) | payer MEDICAID ==
--- NOTE | 2022-05-21 15:34 | USB ---
Reason for Exam: Clinical finding. Patient History: 10/01/2021, Benign US biopsy breast VAD LT on the left side. Risk Values: Sharon 5 year model risk: 0.8%. NCI Lifetime model risk: 7.2%. Findings: The upper inner quadrant of the left breast, the axilla of the left breast and the retroareolar of the left breast were scanned. There is a benign-appearing lymph node within the left axilla. Note is made of a surgical clip adjacent. No suspicious thickened cortex lymphadenopathy is evident. Within the left breast region no suspicious or solid lesion evident. Overall Assessment: Benign, BI-RAD 2 Electronically signed and approved by: Srinivasa Mcqueen D.O. Radiologis
== END | disposition home or self-care (01) ==
LOC: RADUSWWP 14:53
PROVIDERS: ATTEND Family Medicine
DX: Z85.3 Personal history of malignant neoplasm of breast (principal)

== ENCOUNTER → 2022-08-07 | Outpatient (CLI) | payer MEDICAID ==
--- NOTE | 2022-08-08 23:57 | MR ---
EXAMINATION TYPE: MR knee LT wo con DATE OF EXAM: 08/07/2022 COMPARISON: Outside left knee x-ray June 20, 2022 HISTORY: Left knee pain, locking, and swelling for 6 months. History of prior surgery. TECHNIQUE: Multiplanar, multisequence images of the knee is performed without IV contrast. FINDINGS: MEDIAL MENISCUS: Anterior and posterior horns are intact without tear. LATERAL MENISCUS: Truncated appearance anterior horn presumed surgical change tear. CRUCIATE LIGAMENTS: The posterior cruciate ligament is intact and unremarkable. Artifact from prior a nterior cruciate ligament repair is noted. Surgically repaired anterior cruciate ligament remains int act seen best coronal image 21. COLLATERAL LIGAMENTS: The medial collateral ligament and lateral collateral ligament complex are inta ct. Medial bowing of medial meniscus due to prominent spur from the distal femur medial aspect. EXTENSOR MECHANISM: Visualized quadriceps and patellar tendons are intact. EFFUSION: No significant suprapatellar joint effusion. POPLITEAL CYST: No popliteal/wilson cyst. TRICOMPARTMENT SPACES: Moderate to severe tricompartment joint space loss and spurring. CARTILAGE: Significant cartilaginous loss medial and lateral tibiofemoral compartments. BONE MARROW SIGNAL: No focal abnormal marrow signal is appreciated. OTHER: No additional significant abnormality is appreciated. IMPRESSION: 1. Fairly severe tricompartment degenerative changes as detailed above quite pronounced for patient's chronologic age. 2. Evidence of prior ACL repair and presumed partial meniscectomy lateral meniscus. No recurrent tear is seen.
== END | disposition home or self-care (01) ==
LOC: RADMRIMAIN 16:02
PROVIDERS: ATTEND Orthopaedic Surgery
DX: M17.12 Unilateral primary osteoarthritis, left knee (principal)

== ENCOUNTER → 2023-02-10 | Outpatient (CLI) | payer MEDICAID ==
--- NOTE | 2023-02-10 16:23 | US ---
EXAMINATION TYPE: US pelvic complete DATE OF EXAM: 02/10/2023 COMPARISON: 01/08/2022 CLINICAL INDICATION: Female, 47 years old with history of R19.00 INTRA-ABD AND PELVIC SWELLING, MASS AND LUM; History of right ovarian cyst TECHNIQUE: Transabdominal sonographic images of the pelvis were acquired. Date of LMP: 1 week ago EXAM MEASUREMENTS: Uterus: 8.3 x 4.0 x 5.0 cm Endometrial Stripe: 0.9 cm Right Ovary: 3.5 x 1.9 x 2.8 cm Left Ovary: 2.8 x 1.7 x 1.5 cm 1. Uterus: anteverted 2. Endometrium: May be slightly thicker than expected given patient's LMP one week ago. 3. Right Ovary: 1.6cm cyst vs. dominant follicle 4. Left Ovary: wnl 5. Bilateral Adnexa: wnl 6. Posterior cul-de-sac: wnl IMPRESSION: 1. Endometrial stripe thickness of 9 mm slightly more than expected. Should correspond to the early s ecretory phase of the menstrual cycle. 2. A 1.6 cm dominant follicle or functional cyst of the right ovary.
== END | disposition home or self-care (01) ==
LOC: RADUSWWP 15:42
PROVIDERS: ATTEND Family Medicine
DX: N83.201 Unspecified ovarian cyst, right side (principal); R19.09 Other intra-abdominal and pelvic swelling, mass and lump
CPT/HCPCS: 76856

== ENCOUNTER → 2023-02-12 | Outpatient (CLI) | payer MEDICAID ==
[2023-02-12 10:57] LABS: Basophils # (A) 0.09 X 10*3/uL (0.00-0.10); Basophils % (A) 1.2 %; Eosinophils # (A) 0.17 X 10*3/uL (0.04-0.35); Eosinophils % (A) 2.3 %; HCT 46.2 % (37.2-46.3); Lymphocytes # (A) 2.08 X 10*3/uL (0.90-5.00); Lymphocytes % (A) 27.7 %; MCHC 32.5 g/dL (32.0-37.0); MCV 101.5 FL (80.0-97.0); Mean Platelet Volume 11.3 FL (9.5-12.2); Monocytes # (A) 0.77 X 10*3/uL (0.20-1.00); Monocytes % (A) 10.3 %; NRBC Per 100 WBC 0 X 10*3/uL (0.00-0.01); Neutrophils # (A) 4.38 X 10*3/uL (1.80-7.70); Neutrophils % (A) 58.4 %; Platelet Count 221 X 10*3/uL (140-440); RBC 4.55 X 10*6/uL (4.10-5.20); RDW 13.1 % (11.5-14.5)
--- NOTE | 2023-02-12 10:59 | XR ---
EXAMINATION TYPE: XR chest 2V DATE OF EXAM: 02/12/2023 COMPARISON: 11/10/2011 HISTORY: 47-year-old female preoperative evaluation prior to knee replacement, smoker TECHNIQUE: Frontal and lateral views FINDINGS: Multiple surgical clips seem to localize to the breasts. Clinically correlate. Some fine retained met al wire is present at the right breast. Heart normal size. Aorta and pulmonary vasculature within nor mal limits. No consolidation or pleural effusion. IMPRESSION: Multiple surgical clips at the breasts. No acute cardiopulmonary process.
[2023-02-12 11:25] LABS: BUN/Creat Ratio 25.25 Ratio (12.00-20.00); Blood Urea Nitrogen 20.2 mg/dL (9.0-27.0); Calcium 9.5 mg/dL (8.7-10.3); Carbon Dioxide 24.4 mmol/L (21.6-31.8); Chloride 105 mmol/L (96-109); Glucose 95 mg/dL (70-110); Potassium 5.3 mmol/L (3.5-5.5); Sodium 139 mmol/L (135-145)
[2023-02-12 15:19] LABS: Prothrombin Time 10.8 sec (9.9-11.9)
== END | disposition home or self-care (01) ==
LOC: LABPAT 07:12
PROVIDERS: ATTEND Orthopaedic Surgery
DX: Z01.818 Encounter for other preprocedural examination (principal); M17.12 Unilateral primary osteoarthritis, left knee; I45.10 Unspecified right bundle-branch block; R00.1 Bradycardia, unspecified; Z22.322 Carrier or suspected carrier of Methicillin resistant Staphylococcus aureus
CPT/HCPCS: 71046; 80048; 85025; 85610; 87070; 93005

== ENCOUNTER 2023-03-13 06:39 | Day surgery (SDC) | payer MEDICAID ==
[2023-03-05 15:45] VITALS: BMI 25.6
--- NOTE | 2023-03-12 08:54 | P.HPOR ---
History of Present Illness H&P Date: 03/12/23 Chief Complaint: Left knee pain A 47-year-old female who presents with progressive left knee pain for the past couple of years worsening recently. She notes diffuse pain and swelling. She has intermittent catching and locking. She's tried medications in addition to injections without much relief. She's had previous ACL reconstruction in addition to multiple arthroscopies. She notes daily pain that limits her normal function and activities. Review of Systems As per HPI Past Medical History Past Medical History: Cancer, Eye Disorder, Musculoskeletal Disorder, Osteoarthritis (OA) Additional Past Medical History / Comment(s): Hx breast cancer 2017; Do not use Lt arm for blood work or IV. Hx Lt lazy eye. Treated for HTN for 1 year after Breast cancer. History of Any Multi-Drug Resistant Organisms: None Reported Past Surgical History: Breast Surgery, Hernia Repair, Orthopedic Surgery, Tubal Ligation Additional Past Surgical History / Comment(s): Lt lazy eye surg x3. Bilat Mastectomy w/ lymph node removal on left side; breast deep flap reconstruction w/ implants. ACL, meniscus Lt knee x2. Hernia repair 2018, left carp tunnel release. lysis of adhesions and hernia repair 02/28/22 Past Anesthesia/Blood Transfusion Reactions: No Reported Reaction Additional Past Anesthesia/Blood Transfusion Reaction / Comment(s): Do not use Lt arm. Smoking Status: Current every day smoker - Past Family History Father Family Medical History: Cancer Additional Family Medical History / Comment(s): prostate cancer Medications and Allergies Home Medications Medication Instructions Recorded Confirmed Type Ibuprofen [Motrin Ib] 400 - 600 mg PO BID PRN 03/05/23 03/05/23 History Allergies Allergy/AdvReac Type Severity Reaction Status Date / Time latex Allergy Rash/Hives Verified 03/05/23 15:08 "white gloves at work" Allergy Rash/Hives Uncoded 03/05/23 15:08 Physical Examination - Knee left Appearance: effusion Effusion grade: grade 1 Valgus alignment in stance: 5 degrees Tenderness with palpation: anterior, lateral Pain: throughout ROM Gait: limping ROM: extension: -15 degrees ROM: flexion: 80 degrees Crepitus with motion: Yes Strength: extension: 5/5 Strength: flexion: 5/5 Meniscal tests: lateral meniscal tests: positive, lateral joint line pain: positive Results The patient is a well-developed well-nourished female, approximately 5 foot 6 and 139 pounds. HEENT exam is nonfocal, neck is supple. She has painless passive motion of her left hip. Straight leg raise is negative. She's tender but the lateral joint line of the left knee. Has mild valgus laxity at 0 and 30 of flexion. Dina's 1+. Lacie's is elicits lateral pain. Her distal neurovascular appears intact in the left lower extremity. - Diagnostic results Knee x-ray: image reviewed (Review of the left knee obtaining office show severe tricompartmental osteoarthrosis. Previous hardware from her ACL reconstruction is noted.) Assessment and Plan Assessment: Left knee severe tricompartmental osteoarthrosis History of left ACL reconstruction Plan: I talked to the patient at length regarding her condition along with treatment options. At this point she is quite symptomatic and limited because of pain related to to her left knee osteoarthrosis despite conservative measures. After a thorough discussion she opted to proceed with surgery. We will plan to proceed with left total knee arthroplasty. Potentially we'll perform that as an outpatient procedure. Risks and benefits were discussed at length in layman's terms.
[~2023-03-13 06:39] MED LIST changes: -ACETAMINOPHEN TAB 500 MG TAB PO ONE; +ACETAMINOPHEN TAB 500 MG TAB PO PRN; +DEXAMETHASONE SOD PHOSPHATE 4 MG/ML 1 ML VIAL IV ONE; -GABAPENTIN 300 MG CAP PO ONE; -HEPARIN SODIUM,PORCINE/PF 5,000 UNIT/0.5 ML SYRINGE SQ PRN; +LIDOCAINE 1% (10MG/ML) FOR IV START INTRADERMA PRN; +MELOXICAM 7.5 MG TAB PO PRN; -MELOXICAM 7.5 MG TAB PO SCH; +ONDANSETRON 4 MG/2 ML VIAL IVP ONE; -SCOPOLAMINE 1 MG/72 HR PATCH TRANSDERM ONE; +TRANEXAMIC 1,000 MG/100ML-NACL 1,000 MG in SALINE 1 100ML.BAG IVPB PRN; +droPERidol 5 MG/2 ML VIAL IVP ONE
[2023-03-13] MEDS ORDERED: HYDROmorphone 0.5 MG/0.5 ML SYRINGE IVP PRN ×2 (07:00→11:10)
[2023-03-13] MEDS: LACTATED RINGERS 1,000 ML IV SCH ×2 (07:10→20:01)
[2023-03-13] MEDS ORDERED: MIDAZOLAM 2 MG/2 ML VIAL IVP ONE (08:20)
[2023-03-13] MEDS ORDERED: fentaNYL (PF) 50 MCG/ML 2 ML AMP ONE (09:25)
[2023-03-13] MEDS ORDERED: DEXAMETHASONE SOD PHOSPHATE 4 MG/ML 1 ML VIAL ONE (09:25)
[2023-03-13] MEDS ORDERED: ROCURONIUM 10 MG/ML (5 ML VIAL) IV ONE (09:25)
[2023-03-13] MEDS ORDERED: MIDAZOLAM 2 MG/2 ML VIAL ONE (09:25)
[2023-03-13] MEDS ORDERED: GLYCOPYRROLATE 0.2 MG/ML 2 ML VIAL ONE (09:25)
[2023-03-13] MEDS ORDERED: LIDOCAINE 1% INJ 10MG/ML (20 ML MDV) ONE (09:25)
[2023-03-13] MEDS ORDERED: PROPOFOL 10 MG/ML 20 ML VIAL IV ONE (09:25)
[2023-03-13] MEDS ORDERED: ROPIVACAINE 5 MG/ML 30 ML VIAL ONE (09:25)
[2023-03-13] MEDS ORDERED: TRANEXAMIC 1,000 MG/100ML-NACL PREMIX BAG ONE (09:25)
[2023-03-13] MEDS ORDERED: SUCCINYLCHOLINE CHLORIDE 200 MG/10 ML VIAL IV ONE (09:25)
[2023-03-13] MEDS ORDERED: HYDROmorphone (PF) 1 MG/ML ONE (09:25)
[2023-03-13] MEDS ORDERED: NEOSTIGMINE 1 MG/ML 10 ML VIAL ONE (09:25)
[2023-03-13] MEDS ORDERED: ceFAZolin 1,000 MG in SODIUM CHLORIDE 0.9% 1,000 ML IRRIGATION ONE (09:59)
[2023-03-13] MEDS ORDERED: LACTATED RINGERS 1,000 ML IV ONE (10:34)
[2023-03-13] MEDS ORDERED: hydrOXYzine pamoate 25 MG CAP PO PRN (11:10)
[2023-03-13] MEDS ORDERED: HYDROcodone/APAP 5-325MG 1 EACH TAB PO PRN (11:10)
[2023-03-13] MEDS ORDERED: NALOXONE 0.4 MG/ML 1 ML VIAL IV PRN (11:10)
[2023-03-13] MEDS ORDERED: MAGNESIUM HYDROXIDE 2,400 MG/30 ML CUP PO PRN (11:10)
[2023-03-13] MEDS ORDERED: HYDROmorphone 1 MG/ML 1 ML SYRINGE IVP PRN (11:10)
--- NOTE | 2023-03-13 11:33 | P.OP ---
Date of Procedure: 03/13/23 Preoperative Diagnosis: Left knee severe tricompartmental osteoarthrosis Postoperative Diagnosis: Same in addition to retained hardware left proximal tibia Procedure(s) Performed: Left total knee arthroplastycementedposterior stabilized Removal hardware left proximal tibia Implants: Depuy Attune size 4 narrow cemented femoral component, size 4 tibial component, 10 mm articular surface, 32 mm cemented patellar component. Anesthesia: [facility] Surgeon: Eligio Reed Wan Support Specialist #1: Paul Breaux Estimated Blood Loss (ml): 50 Pathology: none sent Condition: stable Disposition: PACU Indications for Procedure: The patient is a 47-year-old female who presents with progressive left knee pain secondary to osteoarthrosis despite extensive conservative measures. A discussion of the risks and benefits of operative intervention versus continued conservative measures was made with the patient. She opted to proceed with surgery. Operative risks to include infection, neurovascular injury, development of blood clots, fracture, possible component loosening/failure and need for subsequent procedures was discussed. Informed consent was obtained. Operative Findings: As below Description of Procedure: The patient was brought to the operating room, and after induction of spinal anesthesia the left lower extremity was prepped and draped in a normal fashion. The tourniquet was inflated to 270 mm of mercury. A longitudinal incision extending 3 finger breaths above the superior pole of patella extending to the medial aspect the tibial tubercle was then made. The skin and subcutaneous tissues were divided sharply. Electrocautery was used for hemostasis. A medial parapatellar arthrotomy was performed. The medial soft tissues to include the superficial and deep portions of the medial collateral ligament were elevated subperiosteally. The patella was everted. A portion of the retropatellar fat pad was excised sharply. The anterior cruciate ligament was sacrificed. Blunt retractors were placed. A starting hole was made in the distal femur 1 cm anterior to the posterior cruciate ligament origin. An intramedullary femoral guide was then inserted planning on 5 valgus distal cut with 9 mm distal resection. The cutting block was pinned in place. The distal cut was then made. The posterior referencing sizing guide was utilized. I felt size 4 narrow was most appropriate. 3 of external rotation was built into the system and verified off the trans-epicondylar axis and the posterior condyles. The cutting block was pinned in place. The anterior, posterior, and chamfer cuts then made. Bone fragments were removed. The intercondylar guide was placed and the notch cut was made with a sagittal saw. The bone block was removed in one fragment. The trial component was then placed. There is good anterior to posterior and medial to lateral fit. The distal peg holes were drilled. The trial component was removed. Attention was then paid towards preparing the proximal tibia. An extra medullary guide was utilized in line with the tibial shaft and second metatarsal distally. I planned on 6 mm resection from the medial compartment. The cutting block was pinned in place. The proximal tibial cut was then made. The bone was removed in one fragment. The remnants of the medial and lateral menisci were excised at the capsular junction with electrocautery. The tibia sized most appropriately at size 4. The trial femoral and tibial components were placed along with a 10 mm articular surface. I was able to obtain full flexion and extension with internal and external rotation. After several flexion and extension cycles, the tibial rotation was marked with electrocautery line with the medial one third of the tibial tubercle. Attention was then paid towards preparing the patella. A patella reamer was utilized taking stem to 14 mm of bone stock. A good flush cut was made. The patella sized most appropriately 32 mm. The peg holes were drilled. The trial components placed. I had good patellofemoral tracking with no hands technique. The trial components were then removed. The previously placed proximal tibial interference screw and sheath were interfering with proximal tibial preparation therefore were removed. The tibia was then prepared with the appropriate drill and keel punch. The posterior osteophytes were removed with a curved osteotome. The flexion and extension gaps were checked and felt to be symmetric at 10 mm. A trial components were then removed. The bony surfaces were prepared with pulsatile lavage and dried. The tibial component was then cemented place was fully seated. Excess cement was removed. The femoral component cemented place and was fully seated. Excess cement was rem rodriguez. The trial 10 mm articular surface was placed and the knee was put in full extension. The patella component was cemented place. After the cement had sufficiently hardened, the knee was again taken through a range of motion. Again I was able to obtain full flexion and extension with varus and valgus stress. The trial 10 mm articular surface was removed and the final one inserted. This was fully seated. Care was taken to avoid any soft tissue interposition. Pulsatile lavage was again utilized. The medial parapatellar arthrotomy was closed with #2 Ethibond suture. The tourniquet was deflated with approximately 60 minutes total tourniquet time. Final hemostasis was obtained with the cautery. There was minimal bleeding therefore a deep drain was not placed. The subcutaneous tissues were reapproximated with interrupted 2-0 Vicryl sutures. The skin was reapproximated with 3-0 subcuticular strata fix suture. Skin tape and adhesive was applied. A sterile dressing was applied. The patient was awoken from sedation and transferred to recovery room in good condition. Blood loss was estimated at 50 mL. No complications were incurred. Sponge and needle counts were correct at the end of the case. Paul SULLIVAN assisted during the major components of this case to include exposure, bone resection, implantation, and closure.
[2023-03-13] MEDS ORDERED: ROPIVACAINE 0.75% 1,100 MG, SODIUM CHLORIDE 0.9% 500 ML 403 ML, EMPTY PAIN BALL 1 EACH MISCELLANE PRN ×2 (11:38)
--- NOTE | 2023-03-13 12:10 | XR ---
EXAMINATION TYPE: XR knee limited LT DATE OF EXAM: 03/13/2023 COMPARISON: NONE TECHNIQUE: Two views submitted HISTORY: Post op FINDINGS: There is a prosthetic knee in near anatomic alignment. There is soft tissue edema and soft tissue e mphysema. IMPRESSION: 1. Postoperative change. Appears in near-anatomic alignment
[2023-03-13] MEDS: HYDROcodone/APAP 7.5-325MG 1 EACH TAB PO PRN (14:54)
[2023-03-13] MEDS ORDERED: SENNOSIDES-DOCUSATE SODIUM 1 EACH TAB PO SCH (21:00)
[2023-03-14] MEDS: HYDROcodone/APAP 7.5-325MG 1 EACH TAB PO PRN ×2 (01:02→07:32)
[2023-03-14 08:51] VITALS: BP 124/68; PULSE 57; RESP 17; TEMP 98.4
[2023-03-14] MEDS ORDERED: RIVAROXABAN 10 MG TAB PO SCH (09:00)
--- NOTE | 2023-03-14 09:26 | P.DS ---
Providers Date of admission: 03/13/2023 Expected date of discharge: 03/14/23 Attending physician: Eligio Reed Consults: 03/13/23 19:07 Consult Physician Urgent Consulting Provider: Bryon Guillen Consult Reason/Comments: Medical management Do you want consulting provider notified?: Yes Primary care physician: Lamberto Hassan [facility] Course: Date of admission: 03/13/2023 Date of discharge: 03/14/2023 Admission diagnosis: Left knee osteoarthritis Discharge diagnosis: same Attending physician: Dr. Reed Surgical procedures: Total knee arthroplasty Brief history: Patient is a 47-year-old female with a history of progressive primary left knee osteoarthritis. At this point patient has failed conservative treatment measures and has opted to proceed with a elective left total knee arthroplasty. Hospital course: Details of patient's surgery can be found in operative report. Patient tolerated the procedure well and was subsequently transported to orthopedic floor. Patient's orthopeidc and medical care was provided daily. Patient had daily laboratory tests performed for evaluation of overall blood counts. Patient had daily physical therapy to include strengthening range of motion as well as education with walker ambulation. Patient was noted to have a relatively uneventful postoperative course. Patient reported satisfactory pain control with oral pain medications by postoperative day 1. Patient showed satisfactory progress with physical therapy. Patient moved steadily through the program and had no difficulty meeting the goals by postoperative day 1. Given patient's otherwise satisfactory course and having met physical therapy goals, plan is to discharge patient home on postoperative day 1. Discharge condition/disposition: Patient will be discharged home in stable condition. Discharge medications: Instructions are given on resumption of patient's normal daily medications per primary care recommendation, in addition patient will be prescribed [place]; Colace; Eliquis 2.5 mg twice a day 2 weeks. Discharge instructions: 1. Wound care and infection precautions, keep incision dry and covered while showering, no lotions, creams, moisturizers. No soaking, tubs, pools, hottubs. Do not scrub over the incision. 2. Weight-bear as tolerated with walker / cane until follow-up. 3. Ice and elevate when necessary. Do not exceed 20 minutes per hour with ice pack. 4. Utilize compression sleeve until seen at first follow up appointment. 5. Visiting nursing care. 6. Home physical therapy including home CPM. 7. Pain meds and anticoagulants per prescription. 8. Pain medication has potential to cause constipation. Increase oral fluid and fiber intake. Contact primary care provider if you have not had a bowel movement within 48 hours after discharge 9. No anti-inflammatory medication until discussed at first post operative visit, this including Motrin, Aleve, Mobic, Diclofenac, Aspirin. 10. Follow up in office at 2 weeks postop with Rohit Walters PA-C / Paul Breaux PA-C 11. Follow up with your primary care doctor 7-10 days after discharge. 12. Contact [facility] with any questions, . Assessment: Left knee osteoarthritis Procedures: Left total knee arthroplasty Patient Condition at Discharge: Good Plan - Discharge Summary Discharge Rx Participant: Yes New Discharge Prescriptions: New HYDROcodone/APAP 7.5-325MG [[place] 7.5] 1 - 2 each PO Q6HR PRN #36 tab PRN Reason: Pain Docusate [Colace] 100 mg PO DAILY #30 capsule Apixaban [Eliquis] 2.5 mg PO BID #60 tab No Action Ibuprofen [Motrin Ib] 400 - 600 mg PO BID PRN PRN Reason: Pain Discharge Medication List Ibuprofen [Motrin Ib] 400 - 600 mg PO BID PRN 03/05/23 [History] Apixaban [Eliquis] 2.5 mg PO BID #60 tab 03/14/23 [Rx] Docusate [Colace] 100 mg PO DAILY #30 capsule 03/14/23 [Rx] HYDROcodone/APAP 7.5-325MG [[place] 7.5] 1 - 2 each PO Q6HR PRN #36 tab 03/14/23 [Rx] Follow up Appointment(s)/Referral(s): Paul Breaux, SAMAN [PHYSICIAN RN CASE MANAGEMENT] - 2 Weeks Patient Instructions/Handouts: *Surgery [facility] - On-Q Pain Pump Discharge Instructions, Knee Replacement (DC) Activity/Diet/Wound Care/Special Instructions: Orthopedic Discharge Instructions: 1. Wound care and infection precautions, keep incision dry and covered while showering, no lotions, creams, moisturizers. No soaking, pools, hot tubs. Do not scrub over incision. 2. Weight-bear as tolerated with walker / cane until follow-up. 3. Ice and elevate when necessary. Do not exceed 20 minutes per hour with ice pack. 4. Utilize compression sleeve until seen at first follow up appointment. 5. Pain meds and anticoagulants per prescription. 6. Pain medication has potential to cause constipation. Increase oral fluid and fiber intake. Contact primary care provider if you have not had a bowel movement within 48 hours after discharge. 7. No anti-inflammatory medication until discussed at first post operative visit, this including Motrin, Aleve, Mobic, Diclofenac. 8. Follow up in office at 2 weeks postop with Rohit Walters PA-C / Paul Breaux PA-C 9. Follow up with your primary care doctor 7-10 days after discharge. 10. Contact [facility] with any questions, . Keep incision clean, dry, intact. While showering, cover fusion tape with saran wrap. Keep fusion tape on until follow-up appointment in office in 2 weeks Discharge Disposition: HOME WITH HOME HEALTH SERVICES
--- NOTE | 2023-03-14 09:29 | P.PN ---
Subjective Progress Note Date: 03/14/23 Principal diagnosis: Left knee osteoarthritis Patient was seen at bedside this morning sitting at the edge of the bed. Patient says she is looking forward to going home later today. Patient says she has been up walking around since surgery yesterday. Patient says she has urina palma several times. Patient says she has not had a bowel movement yet however, patient says she has been passing gas. Patient says there is pain to the knee but it has been controlled pain medication. Patient denies chest pain, fever, shortness of breath, nausea, vomiting, change in vision, loss of bowel/bladder control. Objective - Vital Signs Vital signs: Vital Signs Temp 98.4 F 03/14/23 08:00 Pulse 57 L 03/14/23 08:00 Resp 17 03/14/23 08:00 BP 124/68 03/14/23 08:00 Pulse Ox 97 03/14/23 08:00 FiO2 Intake & Output 03/13/23 03/14/23 03/14/23 18:59 06:59 18:59 Intake Total 1751 1471 Output Total 50 Balance 1701 1471 Weight 68.7 kg Intake: IV 1751 Intake, IV Titration 290 Amount Lactated Ringers 1,000 ml 240 @ 20 mls/hr IV .Q24H OLIVIA Rx#:[id number] ceFAZolin 2 gm In Sodium 50 Chloride 0.9% 50 ml @ 100 mls/hr IVPB Q8H OLIVIA Rx#: [id number] Oral 1181 Output: Estimated Blood Loss 50 Other: # Voids 0 4 - Exam Left knee: Incision is clean, dry, and intact. The exofin fusion tape is in good condition. There is minimal soft tissue swelling and ecchymosis surrounding the medial and lateral aspects of the incision. Calf is soft, no tenderness with palpation. Plantar flexion, dorsiflexion, EHL, FHL are intact. Sensory exam to light touch throughout the extremity is intact, dorsal pedis pulses 2+. Assessment and Plan Assessment: 1. Left knee osteoarthritis - Postoperative day 1 status post left total knee arthroplasty Plan: 1. Left knee osteoarthritis - left total knee arthroplasty performed yesterday, 03/13/2023. Patient stable bedside this morning. Prescription for walker was signed for home. Discharge home today with health services. 2. Appreciate medical management 3. Pain management - [place] 4. DVT prophylaxis - Xarelto in hospital. Going home with eliquis 2.5 mg twice a day 2 weeks 5. GI prophylaxis - senna 6. PT/OT - weightbearing as tolerated with walker 7. Encourage incentive spirometer use 8. Discharge planning - home today with health services Time with Patient: Less than 30
--- NOTE | 2023-03-14 11:20 | P.PN ---
Progress Note - Text 03/14/23 1104am 47-year-old female status post total knee replacement by Dr. Reed. Patient has an On-Q pump for postop pain control with the solution running at 8 mL an hour with a VAS of 5. Dressing clean dry and intact. Plan to continue On-Q pump infusion
--- NOTE | 2023-03-14 11:23 | P.ANPRN ---
Procedure Note - Anesthesia - Nerve Block Performed Left Adductor Canal Infusion Time Out Performed: Yes Date of Procedure: 03/13/23 Procedure Start Time: : Procedure Stop Time: :30 Location of Patient: PreOp Indication: Acute Post-Operative Pain, Requested by Surgeon Sedation Type: Sedate with meaningful contact maintained Preparation: Sterile Prep, Sterile Dressing Position: Supine Catheter: Indwelling Needle Types: Pajunk Needle Gauge: 21 Ultrasound used to visualize needle placement: Yes Ultrasound used to observe medication spread: Yes Blood Aspirated: No Pain Paresthesia on Injection Noted: No Resistance on Injection: Normal Image Stored and Saved: Yes Events: Other (see comment) (Ropivacaine 0.5% 20 mL plus dexamethasone 4 mg)
--- NOTE | 2023-03-14 11:24 | P.ANPRN ---
Procedure Note - Anesthesia - Nerve Block Performed Left iPack Single Time Out Performed: Yes Date of Procedure: 03/13/23 Procedure Start Time: : Procedure Stop Time: :34 Location of Patient: PreOp Indication: Acute Post-Operative Pain, Requested by Surgeon Sedation Type: Sedate with meaningful contact maintained Preparation: Sterile Prep Position: Supine Needle Types: Pajunk Needle Gauge: 21 Ultrasound used to visualize needle placement: Yes Ultrasound used to observe medication spread: Yes Blood Aspirated: No Pain Paresthesia on Injection Noted: No Resistance on Injection: Normal Image Stored and Saved: Yes Events: Uneventful and Well Tolerated (Ropivacaine 0.5% 20 mL plus dexamethasone 4mg)
[2023-03-14 12:35] LABS: Blood Urea Nitrogen 16.8 mg/dL (9.0-27.0); Calcium 8.9 mg/dL (8.7-10.3); Carbon Dioxide 22.2 mmol/L (21.6-31.8); Chloride 107 mmol/L (96-109); Glucose 94 mg/dL (70-110); Sodium 139 mmol/L (135-145)
[2023-03-14 13:01] LABS: Basophils # (A) 0.04 X 10*3/uL (0.00-0.10); Basophils % (A) 0.3 %; Eosinophils # (A) 0.04 X 10*3/uL (0.04-0.35); Eosinophils % (A) 0.3 %; HGB 12.4 g/dL (12.0-15.0); Lymphocytes # (A) 2.59 X 10*3/uL (0.90-5.00); Lymphocytes % (A) 19.2 %; MCH 33.1 pg (27.0-32.0); MCHC 32.6 g/dL (32.0-37.0); MCV 101.3 FL (80.0-97.0); Mean Platelet Volume 12.2 FL (9.5-12.2); Monocytes % (A) 8.9 %; NRBC Per 100 WBC 0 X 10*3/uL (0.00-0.01); Neutrophils # (A) 9.55 X 10*3/uL (1.80-7.70); Neutrophils % (A) 70.9 %; Platelet Count 193 X 10*3/uL (140-440); RBC 3.75 X 10*6/uL (4.10-5.20); RDW 12.9 % (11.5-14.5); WBC 13.48 X 10*3/uL (4.50-10.00)
== END 2023-03-14 11:29 | disposition home health service (06) ==
LOC: OR 06:39 → 4SSUR 11:30 → OR 03-14 11:29
PROVIDERS: ATTEND Orthopaedic Surgery
DX: M17.12 Unilateral primary osteoarthritis, left knee (principal); I10 Essential (primary) hypertension; F17.200 Nicotine dependence, unspecified, uncomplicated; Z79.01 Long term (current) use of anticoagulants; Z85.3 Personal history of malignant neoplasm of breast; Z91.040 Latex allergy status
CPT/HCPCS: 20680; 97116; 97530; 97161; 81025; 64999; 64448; 80048; 85025; 73560; C1713 ×2; C1776; C1751; J2250; J0330; J1100; J2710; J0690 ×3; J2001; J3010; J1170 ×2; J2795 ×2; J2704

== ENCOUNTER → 2023-12-17 | Outpatient (CLI) | payer MEDICAID ==
--- NOTE | 2023-12-17 11:08 | US ---
EXAMINATION TYPE: US gallbladder DATE OF EXAM: 12/17/2023 COMPARISON: CT 11/18/2022 CLINICAL INDICATION: Female, 48 years old with history of R10.11 Right upper quadrant pain; Nausea, b loating, and RUQ pain x few months with diarrhea and constipation; Smoker - trying to quit; Hx breast cancer with DEEP flap reconstruction; HX hernia repair TECHNIQUE: Grayscale and color Doppler imaging of the right upper quadrant was performed. FINDINGS: EXAM MEASUREMENTS: Liver Length: 16.6 cm Gallbladder Wall: 0.1 cm CBD: 0.2 cm Right Kidney: 10.5 x 4.4 x 4.8 cm CARD HANGER NOTES: Pancreas: Obscured by bowel gas Liver: Mild coarsening of the liver Gallbladder: wnl Evidence for sonographic Rogers's sign: No CBD: wnl Right Kidney: wnl IMPRESSION: Mild coarsening of the liver can be associated with underlying hepatocellular disease or fatty infilt ration. Correlate clinically. [facility], , 12/17/2023 11:06 AM
== END | disposition home or self-care (01) ==
LOC: RADUSWWP 07:54
PROVIDERS: ATTEND Surgery Plastic and Reconstructive Surgery
CPT/HCPCS: 76705

== ENCOUNTER → 2023-12-21 | Outpatient (CLI) | payer MEDICAID ==
--- NOTE | 2023-12-21 09:44 | NM ---
EXAMINATION TYPE: NM hepatobiliary w EF DATE OF EXAM: 12/21/2023 9:10 AM COMPARISON: Ultrasound most recent 12/17/2023 CLINICAL INDICATION:Female, 48 years old with history of R10.11 RUQ pain; TECHNIQUE: The patient was given 5.06 mCi of Technetium 99m-Mebrofenin as a radiotracer and multiple scintigraphic images were obtained of the abdomen. Gallbladder function was also assessed after the administration of ensure drink and additional scintigraphic images were obtained of the abdomen. A re gion of interest was drawn over the gallbladder and a timing activity curve was generated. The gallbl adder ejection fraction was calculated. FINDINGS: Normal uptake of radiotracer was identified within the liver with excretion into the hepatic and comm on biliary ducts within 120 seconds. There was normal progressive washout of the liver over the cours e of the study. Radiotracer uptake within the gallbladder at 120 sec as well as small bowel activity was identified at 120 seconds. Maximum calculated gallbladder ejection fraction is: 90% at 30 minutes (Normal gallbladder ejection fraction is > 35%) IMPRESSION: 1. Normal hepatobiliary scan. 2. Normal ejection fraction. [facility], , 12/21/2023 9:41 AM
== END | disposition home or self-care (01) ==
LOC: RADNMMAIN 06:50
PROVIDERS: ATTEND Surgery Plastic and Reconstructive Surgery
DX: R10.11 Right upper quadrant pain (principal)
CPT/HCPCS: 78226

== ENCOUNTER 2024-02-11 09:15 | Day surgery (SDC) | payer MEDICAID ==
[2024-02-10 13:18] VITALS: BMI 25.2
--- NOTE | 2024-02-11 06:41 | P.GSHP ---
History of Present Illness H&P Date: 02/11/24 CHIEF COMPLAINT: Duodenal ulcer HISTORY OF PRESENT ILLNESS: The patient is a 48-year-old female who presents reports duodenal ulcer and right upper quadrant pain. Upper endoscopy was offered for further evaluation and management. PAST MEDICAL HISTORY: Please see list. PAST SURGICAL HISTORY: Please see list. MEDICATIONS: Please see list. ALLERGIES: Please see list. SOCIAL HISTORY: No illicit drug use FAMILY HISTORY: No reports of Crohn disease or ulcerative colitis. REVIEW OF ORGAN SYSTEMS: CONSTITUTIONAL: No reports of fevers or chills. GI: Denies any blood in stools or constipation. PHYSICAL EXAM: VITAL SIGNS: Stable GENERAL: Well-developed and pleasant in no acute distress. HEENT: No scleral icterus. Extraocular movements grossly intact. Moist buccal mucosa. NECK: Supple without lymphadenopathy. CHEST: Unlabored respirations. Equal bilateral excursions. CARDIOVASCULAR: Regular rate and rhythm. Distal 2+ pulses. ABDOMEN: Soft, nondistended. MUSCULOSKELETAL: No clubbing, cyanosis, or edema. ASSESSMENT: 1. Duodenal ulcer PLAN: 1. Recommend proceeding with an upper endoscopy. Past Medical History Past Medical History: Cancer, Eye Disorder, Hypertension, Musculoskeletal Disorder, Osteoarthritis (OA) Additional Past Medical History / Comment(s): Hx breast cancer 2017; Do not use Lt arm for blood work or IV. Hx Lt lazy eye. Treated for HTN for 1 year after Breast cancer. History of Any Multi-Drug Resistant Organisms: None Reported Past Surgical History: Breast Surgery, Joint Replacement, Orthopedic Surgery, Tubal Ligation Additional Past Surgical History / Comment(s): Lt lazy eye surg x3. Bilat Mastectomy w/ lymph node removal; breast deep flap reconstruction w/ implants. Chronic open wound on abdomen surg. ACL, meniscus Lt knee x2. Hernia repair 2018, left carp tunnel release. Lt knee replacement. Past Anesthesia/Blood Transfusion Reactions: No Reported Reaction Additional Past Anesthesia/Blood Transfusion Reaction / Comment(s): Do not use Lt arm. No hx of blood transfusion to date. Smoking Status: Current every day smoker - Past Family History Father Family Medical History: Cancer Additional Family Medical History / Comment(s): prostate cancer Medications and Allergies Home Medications Medication Instructions Recorded Confirmed Type Ibuprofen [Motrin Ib] 400 - 600 mg PO BID PRN 03/05/23 02/10/24 History Zyrtec(Unknown Dose) 1 dose PO QAM PRN 02/10/24 02/10/24 History Allergies Allergy/AdvReac Type Severity Reaction Status Date / Time latex Allergy Rash/Hives Verified 02/10/24 13:09 "white gloves at work" Allergy Rash/Hives Uncoded 02/10/24 13:09
[2024-02-11] MEDS ORDERED: LIDOCAINE 1% (10MG/ML) FOR IV START INTRADERMA PRN (09:29)
[2024-02-11 09:33] VITALS: TEMP 97.2
[2024-02-11] MEDS: IV FLUID CONTINUATION 1,000 ML IV ONE ×2 (09:39→10:00)
[2024-02-11] MEDS: LACTATED RINGERS 1,000 ML IV SCH (09:54)
[2024-02-11] MEDS ORDERED: LIDOCAINE 1% INJ 10MG/ML (20 ML MDV) ONE (10:03)
[2024-02-11] MEDS ORDERED: PROPOFOL 10 MG/ML 20 ML VIAL IV ONE (10:03)
--- NOTE | 2024-02-11 10:24 | P.PCN ---
Date of Procedure: 02/11/24 Description of Procedure: PREOPERATIVE DIAGNOSIS: Gastroesophageal reflux disease. Peptic ulcers POSTOPERATIVE DIAGNOSIS: Gastroesophageal reflux disease with erosive esophagitis Acute gastric ulcers with bleeding Gastritis. Diaphragmatic hiatal hernia OPERATION: Esophagogastroduodenoscopy with cold forceps biopsies along esophagus, antrum and duodenum SURGEON: Yoon Roldan MD ANESTHESIA: MAC. INDICATIONS: The patient is a 48-year-old female who presents with reflux disease, epigastric pain with possible ulcers. Benefits and risks of the procedure were described. Informed consent was obtained. DESCRIPTION: The patient was brought into the endoscopy suite and laid in the left lateral decubitus position. An Olympus gastroscope was passed along the posterior oropharynx down to the distal esophagus where the squamocolumnar junction was encountered at 37 cm from the incisors. The stomach was entered and no bile reflux was found. Additional findings are listed below. Biopsies with cold forceps were obtained of the antrum. The first through third portion of the duodenum was examined. Retroflexion of the scope confirmed Hill grade 3 lower esophageal valve. The squamocolumnar junction demonstrated LA grade B erosive esophagitis. The stomach was desufflated. The patient tolerated the procedure well. FINDINGS: Squamocolumnar junction 37 cm from the incisors. Diaphragmatic hiatus at 40 cm. Hiatal hernia, 3 cm Hill grade 2 lower esophageal valve. LA grade C erosive esophagitis. Biopsies obtained. Biopsies obtained of the duodenum. Acute gastric ulcer with bleeding, 3 mm, along gastric cardia, biopsy obtained Acute gastritis with gastric ulcer, 3 mm x 2 in antrum, with biopsies obtained. RECOMMENDATIONS: Discontinue NSAID Carafate 1 g twice daily for 2 weeks Omeprazole 1 g daily for 2 to 4 weeks Plan - Discharge Summary Discharge Rx Participant: No New Discharge Prescriptions: New Sucralfate [Carafate] 1 gm PO BID #30 tablet Omeprazole [PriLOSEC] 40 mg PO DAILY #14 cap Continue Zyrtec(Unknown Dose) 1 dose PO QAM PRN PRN Reason: Allergy Symptoms Discontinued Ibuprofen [Motrin Ib] 400 - 600 mg PO BID PRN PRN Reason: Pain Discharge Medication List Zyrtec(Unknown Dose) 1 dose PO QAM PRN 02/10/24 [History] Omeprazole [PriLOSEC] 40 mg PO DAILY #14 cap 02/11/24 [Rx] Sucralfate [Carafate] 1 gm PO BID #30 tablet 02/11/24 [Rx] Follow up Appointment(s)/Referral(s): Yoon Roldan MD [STAFF PHYSICIAN] - 03/29/24 4:00 pm Patient Instructions/Handouts: Diet for Stomach Ulcers and Gastritis (ED) Discharge Disposition: HOME SELF-CARE
[2024-02-11 10:25] VITALS: PULSE 63; RESP 16
[2024-02-11 10:42] VITALS: BP 130/77
== END 2024-02-11 11:00 | disposition home or self-care (01) ==
LOC: ORWHC2ENDO 09:15
PROVIDERS: ATTEND Surgery Plastic and Reconstructive Surgery
DX: K29.50 Unspecified chronic gastritis without bleeding (principal); K25.0 Acute gastric ulcer with hemorrhage; K21.00 Gastro-esophageal reflux disease with esophagitis, without bleeding; K44.9 Diaphragmatic hernia without obstruction or gangrene; K26.9 Duodenal ulcer, unspecified as acute or chronic, without hemorrhage or perforation; I10 Essential (primary) hypertension; F17.210 Nicotine dependence, cigarettes, uncomplicated; M19.90 Unspecified osteoarthritis, unspecified site; Z85.3 Personal history of malignant neoplasm of breast; Z98.51 Tubal ligation status; Z98.890 Other specified postprocedural states; Z96.652 Presence of left artificial knee joint; Z91.040 Latex allergy status; Z79.1 Long term (current) use of non-steroidal anti-inflammatories (NSAID); Z79.899 Other long term (current) drug therapy
CPT/HCPCS: 81025; 88305; 88342; 43239; J2003; J2704

== ENCOUNTER 2024-05-05 10:16 | Day surgery (SDC) | payer MEDICAID ==
[2024-05-04 10:31] VITALS: BMI 25.0
--- NOTE | 2024-05-05 08:50 | P.GSHP ---
History of Present Illness H&P Date: 05/05/24 CHIEF COMPLAINT: GERD HISTORY OF PRESENT ILLNESS: The patient is a 49-year-old female who presents reports gastroesophageal reflux disease. Upper endoscopy was offered for further evaluation and management. PAST MEDICAL HISTORY: Please see list. PAST SURGICAL HISTORY: Please see list. MEDICATIONS: Please see list. ALLERGIES: Please see list. SOCIAL HISTORY: No illicit drug use FAMILY HISTORY: No reports of Crohn disease or ulcerative colitis. REVIEW OF ORGAN SYSTEMS: CONSTITUTIONAL: No reports of fevers or chills. GI: Denies any blood in stools or constipation. PHYSICAL EXAM: VITAL SIGNS: Stable GENERAL: Well-developed and pleasant in no acute distress. HEENT: No scleral icterus. Extraocular movements grossly intact. Moist buccal mucosa. NECK: Supple without lymphadenopathy. CHEST: Unlabored respirations. Equal bilateral excursions. CARDIOVASCULAR: Regular rate and rhythm. Distal 2+ pulses. ABDOMEN: Soft, nondistended. MUSCULOSKELETAL: No clubbing, cyanosis, or edema. ASSESSMENT: 1. Gastroesophageal reflux disease PLAN: 1. Recommend proceeding with an upper endoscopy Past Medical History Past Medical History: Cancer, Eye Disorder, GERD/Reflux, Hypertension, Musculoskeletal Disorder, Osteoarthritis (OA) Additional Past Medical History / Comment(s): tested positive Hpylori Jan 2024, Hx breast cancer 2016-no chemo or radiation; Do not use Lt arm for blood work or IV. Hx Lt lazy eye-resolved with surgery. Treated for HTN for 1 year after Breast cancer. History of Any Multi-Drug Resistant Organisms: None Reported Past Surgical History: Breast Surgery, Joint Replacement, Orthopedic Surgery, Tubal Ligation Additional Past Surgical History / Comment(s): Lt lazy eye surg x2. Bilat Mastectomy w/ lymph node removal; breast deep flap reconstruction w/ implants. Chronic open wound on abdomen surg-healed 2018. ACL, meniscus Lt knee x2. Hernia repair 2018, left carp tunnel release. Lt knee replacement. Past Anesthesia/Blood Transfusion Reactions: No Reported Reaction Additional Past Anesthesia/Blood Transfusion Reaction / Comment(s): Do not use Lt arm. No hx of blood transfusion to date. Smoking Status: Current every day smoker - Past Family History Father Family Medical History: Cancer Additional Family Medical History / Comment(s): prostate cancer Medications and Allergies Home Medications Medication Instructions Recorded Confirmed Type Omeprazole [PriLOSEC] 40 mg PO DAILY #14 cap 02/11/24 05/04/24 Rx Sucralfate [Carafate] 1 gm PO BID #30 tablet 02/11/24 05/04/24 Rx Amoxicillin 1,000 mg PO Q12HR #56 cap 03/29/24 05/04/24 Rx Cetirizine HCl [Zyrtec] 10 mg PO Q2D 05/04/24 05/04/24 History Allergies Allergy/AdvReac Type Severity Reaction Status Date / Time latex Allergy Rash/Hives Verified 05/04/24 10:17 "white gloves at work" Allergy Rash/Hives Uncoded 05/04/24 10:17
[~2024-05-05 10:16] MED LIST changes: -ACETAMINOPHEN TAB 500 MG TAB PO PRN; -DEXAMETHASONE SOD PHOSPHATE 4 MG/ML 1 ML VIAL IV ONE; -MELOXICAM 7.5 MG TAB PO PRN; -ONDANSETRON 4 MG/2 ML VIAL IVP ONE; -TRANEXAMIC 1,000 MG/100ML-NACL 1,000 MG in SALINE 1 100ML.BAG IVPB PRN; -droPERidol 5 MG/2 ML VIAL IVP ONE
[2024-05-05] MEDS: IV FLUID CONTINUATION 1,000 ML IV ONE (10:28)
[2024-05-05] MEDS: LACTATED RINGERS 1,000 ML IV SCH (10:41)
[2024-05-05 10:49] VITALS: TEMP 97.5
[2024-05-05] MEDS ORDERED: LIDOCAINE 1% INJ 10MG/ML (20 ML MDV) ONE (11:19)
[2024-05-05] MEDS ORDERED: PROPOFOL 10 MG/ML 20 ML VIAL IV ONE (11:19)
--- NOTE | 2024-05-05 11:37 | P.PCN ---
Date of Procedure: 05/05/24 Description of Procedure: PREOPERATIVE DIAGNOSIS: Gastroesophageal reflux disease. H. pylori gastritis POSTOPERATIVE DIAGNOSIS: Gastroesophageal reflux disease. Gastritis Diaphragmatic hiatal hernia OPERATION: Esophagogastroduodenoscopy with cold forceps biopsies along esophagus, antrum and duodenum SURGEON: Yoon Roldan MD ANESTHESIA: MAC. INDICATIONS: The patient is a 49-year-old female who presents with H. pylori gastritis and reflux disease. Benefits and risks of the procedure were described. Informed consent was obtained. DESCRIPTION: The patient was brought into the endoscopy suite and laid in the left lateral decubitus position. An Olympus gastroscope was passed along the posterior oropharynx down to the distal esophagus where the squamocolumnar junction was encountered at 38 cm from the incisors. The stomach was entered and no bile reflux was found. Additional findings are listed below. Biopsies with cold forceps were obtained of the antrum. The first through third portion of the duodenum was examined. Retroflexion of the scope confirmed Hill grade 2 lower esophageal valve. The squamocolumnar junction demonstrated LA grade C erosive esophagitis. The stomach was desufflated. The patient tolerated the procedure well. FINDINGS: Squamocolumnar junction 38 cm from the incisors. Diaphragmatic hiatus at 39 cm. Hiatal hernia, 1 cm Hill grade 2 lower esophageal valve. LA grade C erosive esophagitis. Biopsies obtained Biopsies obtained of the duodenum. Chronic gastritis with biopsies obtained. RECOMMENDATIONS: Upper endoscopy as needed. Plan - Discharge Summary Discharge Rx Participant: No New Discharge Prescriptions: Continue Amoxicillin 1,000 mg PO Q12HR #56 cap Sucralfate [Carafate] 1 gm PO BID #30 tablet Omeprazole [PriLOSEC] 40 mg PO DAILY #14 cap Cetirizine HCl [Zyrtec] 10 mg PO Q2D Discharge Medication List Omeprazole [PriLOSEC] 40 mg PO DAILY #14 cap 02/11/24 [Rx] Sucralfate [Carafate] 1 gm PO BID #30 tablet 02/11/24 [Rx] Amoxicillin 1,000 mg PO Q12HR #56 cap 03/29/24 [Rx] Cetirizine HCl [Zyrtec] 10 mg PO Q2D 05/04/24 [History] Follow up Appointment(s)/Referral(s): Yoon Roldan MD [STAFF PHYSICIAN] - 05/24/24 3:45 pm Patient Instructions/Handouts: Hiatal Hernia (DC) Discharge Disposition: HOME SELF-CARE
[2024-05-05 11:50] VITALS: RESP 14
[2024-05-05 12:05] VITALS: BP 137/76; PULSE 51
== END 2024-05-05 12:20 | disposition home or self-care (01) ==
LOC: ORWHC2ENDO 10:16
PROVIDERS: ATTEND Surgery Plastic and Reconstructive Surgery
DX: K29.50 Unspecified chronic gastritis without bleeding (principal); K44.9 Diaphragmatic hernia without obstruction or gangrene; K21.9 Gastro-esophageal reflux disease without esophagitis; I10 Essential (primary) hypertension; M19.90 Unspecified osteoarthritis, unspecified site; F17.200 Nicotine dependence, unspecified, uncomplicated; Z79.899 Other long term (current) drug therapy; Z85.3 Personal history of malignant neoplasm of breast; Z91.040 Latex allergy status; Z98.51 Tubal ligation status
CPT/HCPCS: 81025; 88305; 88342; 43239; J2003; J2704

== ENCOUNTER → 2024-08-23 | Outpatient (CLI) | payer MEDICAID ==
[2024-08-23 20:15] LABS: Gliadin AB IgA, Deaminated Negative (Negative); Gliadin AB IgA, Unit <0.5 U/mL
[2024-08-23 20:32] LABS: Gliadin AB IgG, Deaminated Negative (Negative); Gliadin AB IgG, Unit <0.4 U/mL
== END | disposition home or self-care (01) ==
LOC: LABWHC1 15:04
PROVIDERS: ATTEND Internal Medicine
DX: K90.9 Intestinal malabsorption, unspecified (principal); J30.89 Other allergic rhinitis; R19.7 Diarrhea, unspecified; R14.0 Abdominal distension (gaseous)
CPT/HCPCS: 36415; 83516; 86003